=== PATIENT | female | born 1980 | race Caucasian/White ===

== ENCOUNTER 2016-05-09 13:12 | Emergency (ER) | payer MEDICAID ==
[2016-05-09] MEDS ORDERED: ONDANSETRON 4 MG TAB.RAPDIS PO ONE (13:17)
--- NOTE | 2016-05-09 13:18 | ER Document Report ---
ED Medical Screen (RME) - General Stated Complaint: NAUSEA Mode of Arrival: Ambulatory Information source: Patient Notes: Patient presents emergency department with complaints of nasal congestion nausea vomiting diarrhea since Friday night. She complains of body aches. Last vomited this am. I have greeted and performed a rapid initial assessment of this patient. A comprehensive ED assessment and evaluation of the patient, analysis of test results and completion of the medical decision making process will be conducted by additional ED providers. TRAVEL OUTSIDE OF THE [place] IN LAST 30 DAYS: No - Related Data Allergies/Adverse Reactions: iodine [Iodine] Allergy (Verified 05/09/16 13:17) latex [Latex] Allergy (Verified 05/09/16 13:17) meperidine HCl [From Demerol] Allergy (Verified 05/09/16 13:17) morphine [Morphine] Allergy (Verified 05/09/16 13:17) lamotrigine [From Lamictal] Adverse Reaction (Verified 05/09/16 13:17) VOMITING levetiracetam [From Keppra] Adverse Reaction (Verified 05/09/16 13:17) Hallucinations Past Medical History - Social History Family history: Reviewed & Not Pertinent - Past Medical History Cardiac Medical History: Reports: Hx Hypertension - with Pulmonary Medical History: Reports: Hx Asthma - exercise induced Denies: Hx Bronchitis, Hx COPD, Hx Pneumonia Neurological Medical History: Reports: Hx Cerebrovascular Accident - states tia , Hx Migraine, Hx Seizures - epilepsy Endocrine Medical History: GI Medical History: Reports: Hx Irritable Bowel Musculoskeltal Medical History: Reports Hx Musculoskeletal Deformity, Reports Hx Musculoskeletal Trauma Psychiatric Medical History: Reports: Hx Anxiety, Hx Attention Deficit Hyperactivity Disorder, Hx Depression - and anxiety, Hx Obsessive Compulsive Disorder Traumatic Medical History: Reports: Hx Fractures - left foot Past Surgical History: Reports: Hx Appendectomy, Hx Hysterectomy - robotic 01/28, Hx Tonsillectomy - Immunizations Immunizations up to date: Yes Hx Diphtheria, Pertussis, Tetanus Vaccination: Yes
[2016-05-09 13:50] LABS: APPEARANCE,URINE SLIGHTLY-CLOUDY; BILIRUBIN,URINE NEGATIVE (NEGATIVE); GLUCOSE, URINE NEGATIVE (NEGATIVE); KETONES,URINE 20 mg/dL (NEGATIVE); LEUKOCYTE ESTERASE,URINE NEGATIVE (NEGATIVE); NITRITE,URINE NEGATIVE (NEGATIVE); PROTEIN,URINE NEGATIVE (NEGATIVE); UROBILINOGEN,URINE NEGATIVE mg/dL (<2.0)
[2016-05-09 13:53] LABS: ABSOLUTE MONOCYTES (AUTO) 0.3 10^3/uL (0.1-1.4); ABSOLUTE NEUT (AUTO) 4.1 10^3/uL (1.7-8.2); BASOPHILS % (AUTO) 0.2 % (0-2); EOSINOPHILS % (AUTO) 0.8 % (0-6); HEMATOCRIT 43.1 % (36.0-47.0); HEMOGLOBIN 13.4 g/dL (12.0-15.5); HGB HCT DIFFERENCE -2.9; LYMPHOCYTES % (AUTO) 18.8 % (13-45); MEAN CORPUSCULAR HEMOGLOBIN 29.3 pg (27.0-33.4); MEAN CORPUSCULAR HGB CONC 31.1 g/dL (32.0-36.0); MEAN CORPUSCULAR VOLUME 94 fl (80-97); MONOCYTES % (AUTO) 5.2 % (3-13); RED BLOOD COUNT 4.57 10^6/uL (3.72-5.28); RED CELL DISTRIBUTION WIDTH 13.4 % (11.5-14.0); WHITE BLOOD COUNT 5.5 10^3/uL (4.0-10.5)
[2016-05-09 14:20] LABS: ALANINE AMINOTRANSFERASE 25 U/L (9-52); ALBUMIN 4.6 g/dL (3.5-5.0); ALKALINE PHOSPHATASE 71 U/L (38-126); ANION GAP 15 (5-19); ASPARTATE AMINO TRANSFERASE 20 U/L (14-36); BILIRUBIN,TOTAL 0.5 mg/dL (0.2-1.3); BLOOD UREA NITROGEN 10 mg/dL (7-20); CALCIUM 9.3 mg/dL (8.4-10.2); CARBON DIOXIDE 19 mmol/L (22-30); CHLORIDE 110 mmol/L (98-107); CREATININE RESULT 1.06 mg/dL (0.52-1.25); GLUCOSE 93 mg/dL (75-110); POTASSIUM 4.2 mmol/L (3.6-5.0); SODIUM 143.5 mmol/L (137-145); TOTAL PROTEIN 7.4 g/dL (6.3-8.2)
[2016-05-09] MEDS ORDERED: PROMETHAZINE HCL 25 MG TABLET PO ONE (15:14)
[2016-05-09] MEDS ORDERED: HYDROCODONE/ACETAMINOPHEN 5-325 MG TABLET PO ONE (15:16)
--- NOTE | 2016-05-09 15:23 | ER Document Report ---
ED General - General Chief Complaint: Nausea/Vomiting/Diarrhea Stated Complaint: NAUSEA Mode of Arrival: Ambulatory Notes: This is a 36-year-old female who presents complaining of influenza-like illness for 4 days. She states that fever up to 100 associated with vomiting and diarrhea. She's had nasal congestion and runny nose, cough and body aches. She is accompanied by her so who has had similar symptoms but with a higher fever just prior to the onset of the patient's symptoms. She denies shortness of breath. She does state she has upper abdominal pain when coughing. She's had a cholecystectomy and appendectomy. TRAVEL OUTSIDE OF THE [place] IN LAST 30 DAYS: No - Related Data Allergies/Adverse Reactions: iodine [Iodine] Allergy (Verified 05/09/16 13:17) latex [Latex] Allergy (Verified 05/09/16 13:17) meperidine HCl [From Demerol] Allergy (Verified 05/09/16 13:17) morphine [Morphine] Allergy (Verified 05/09/16 13:17) lamotrigine [From Lamictal] Adverse Reaction (Verified 05/09/16 13:17) VOMITING levetiracetam [From Keppra] Adverse Reaction (Verified 05/09/16 13:17) Hallucinations Past Medical History - General Information source: Patient - Social History Smoking Status: Former Smoker - quit 6 months ago Chew tobacco use (# tins/day): No Frequency of alcohol use: None Drug Abuse: None Family History: Arthritis, CVA, DM, Hyperlipidemia, Hypertension, Malignancy Patient has suicidal ideation: No Patient has homicidal ideation: No - Past Medical History Cardiac Medical History: Reports: Hx Hypertension - with Pulmonary Medical History: Reports: Hx Asthma - exercise induced Denies: Hx Bronchitis, Hx COPD, Hx Pneumonia Neurological Medical History: Reports: Hx Cerebrovascular Accident - states tia , Hx Migraine, Hx Seizures - epilepsy Endocrine Medical History: Renal/ Medical History: Denies: Hx Peritoneal Dialysis GI Medical History: Reports: Hx Irritable Bowel Musculoskeltal Medical History: Reports Hx Musculoskeletal Deformity, Reports Hx Musculoskeletal Trauma Psychiatric Medical History: Reports: Hx Anxiety, Hx Attention Deficit Hyperactivity Disorder, Hx Depression - and anxiety, Hx Obsessive Compulsive Disorder Traumatic Medical History: Reports: Hx Fractures - left foot Past Surgical History: Reports: Hx Appendectomy, Hx Hysterectomy - robotic 10/17 /13, Hx Tonsillectomy - Immunizations Immunizations up to date: Yes Hx Diphtheria, Pertussis, Tetanus Vaccination: Yes Hx Pneumococcal Vaccination: 01/12/13 Review of Systems - Review of Systems Constitutional: Chills, Fever, Malaise, Weakness EENT: Nose congestion, Nose discharge. denies: Ear pain, Throat pain, Difficulty swallowing Cardiovascular: denies: Chest pain, Syncope Respiratory: Cough. denies: Short of breath, Wheezing Gastrointestinal: Diarrhea, Nausea, Vomiting Genitourinary: denies: Dysuria, Flank pain Musculoskeletal: denies: Back pain Skin: denies: Rash Neurological/Psychological: denies: Numbness, Tingling Physical Exam - Notes Notes: GENERAL: Alert, well-appearing female sitting on the stretcher, wearing a respiratory mask in no acute distress HEAD: Atraumatic, normocephalic. EYES: Pupils equal round and reactive to light, extraocular movements intact, sclera anicteric, conjunctiva are normal. ENT: TMs normal, nares patent, oropharynx clear without exudates. Moist mucous membranes. + Rhinorrhea clear NECK: Normal range of motion, supple without lymphadenopathy or JVD. LUNGS: Breath sounds clear to auscultation bilaterally and equal. No wheezes rales or rhonchi. HEART: Regular rate and rhythm without murmurs, rubs or gallops. ABDOMEN: Soft, nontender, normoactive bowel sounds. No guarding, no rebound. No masses appreciated. EXTREMITIES: Normal range of motion, no pitting or edema. No clubbing or cyanosis. NEUROLOGICAL: No facial droop, moving all 4 external he spontaneously PSYCH: Normal mood, normal affect. SKIN: Warm, Dry, normal turgor, no rashes or lesions noted. Course - Re-evaluation Re-evalutation: 05/09/16 15:20 Patient 4 days into influenza-like illness. No sign of serious bacterial infection. - Laboratory Result Diagrams: 05/09/16 13:30 05/09/16 13:30 Laboratory results interpreted by me: 05/09/16 05/09/16 05/09/16 13:30 13:30 13:30 MCHC 31.1 L Chloride 110 H Carbon Dioxide 19 L Est GFR (Non-Af Amer) 59 L Urine Ketones 20 H Discharge - Discharge Clinical Impression: Influenza-like illness Condition: Good Disposition: HOME, SELF-CARE Additional Instructions: return if you are short of breath, cannot keep down fluids or are feeling worse. Symptoms should resolve in about a week from onset. Follow up with your doctor if not feeling well. Prescriptions: Hydrocodone/Acetaminophen [[place] 5-325 mg Tablet] 1 tab PO 6XD PRN #12 tablet PRN Reason: Promethazine HCl [Phenergan 25 mg Tablet] 1 - 2 tab PO Q6H PRN #15 tablet PRN Reason:
[2016-05-09 15:29] VITALS: BP 119/66
== END 2016-05-09 15:35 | disposition home or self-care (01) ==
LOC: ER 13:12
DX: J11.1 Influenza due to unidentified influenza virus with other respiratory manifestations (principal); R11.2 Nausea with vomiting, unspecified; R19.7 Diarrhea, unspecified; R50.9 Fever, unspecified; R09.81 Nasal congestion; R09.89 Other specified symptoms and signs involving the circulatory and respiratory systems; Z87.891 Personal history of nicotine dependence
CPT/HCPCS: 99283; 36415; 85025; 80053; 81001; S0119; J3490

== ENCOUNTER 2016-07-03 13:27 | Emergency (ER) | payer MEDICAID ==
--- NOTE | 2016-07-03 13:44 | EKG REPORT ---
SEVERITY:- BORDERLINE ECG - SINUS RHYTHM : Confirmed by: Junior Amanda MD 03-Jul-2016 13:43:50
--- NOTE | 2016-07-03 13:47 | ER Document Report ---
ED Medical Screen (RME) - General Stated Complaint: CHEST PAIN Notes: 36 yo female c/o acute onset of midsternal chest pain around 1pm. radiates to right arm with right hand numbness. + nausea, + shortness of breath. non smoker, no OCP, no recent travel, no recent surgery or trauma. hx/o gestational diabetes, no HTN TRAVEL OUTSIDE OF THE [place] IN LAST 30 DAYS: No - Related Data Allergies/Adverse Reactions: iodine [Iodine] Allergy (Verified 05/09/16 13:17) latex [Latex] Allergy (Verified 05/09/16 13:17) meperidine HCl [From Demerol] Allergy (Verified 05/09/16 13:17) morphine [Morphine] Allergy (Verified 05/09/16 13:17) lamotrigine [From Lamictal] Adverse Reaction (Verified 05/09/16 13:17) VOMITING levetiracetam [From Keppra] Adverse Reaction (Verified 05/09/16 13:17) Hallucinations Past Medical History - Social History Family history: Reviewed & Not Pertinent - Past Medical History Cardiac Medical History: Reports: Hx Hypertension - with Pulmonary Medical History: Reports: Hx Asthma - exercise induced Denies: Hx Bronchitis, Hx COPD, Hx Pneumonia Neurological Medical History: Reports: Hx Cerebrovascular Accident - states tia , Hx Migraine, Hx Seizures - epilepsy Endocrine Medical History: Renal/ Medical History: Denies: Hx Peritoneal Dialysis GI Medical History: Reports: Hx Irritable Bowel Musculoskeltal Medical History: Reports Hx Musculoskeletal Deformity, Reports Hx Musculoskeletal Trauma Psychiatric Medical History: Reports: Hx Anxiety, Hx Attention Deficit Hyperactivity Disorder, Hx Depression - and anxiety, Hx Obsessive Compulsive Disorder Traumatic Medical History: Reports: Hx Fractures - left foot Past Surgical History: Reports: Hx Appendectomy, Hx Hysterectomy - robotic 01/28, Hx Tonsillectomy - Immunizations Immunizations up to date: Yes Hx Diphtheria, Pertussis, Tetanus Vaccination: Yes
[2016-07-03 14:12] LABS: ABSOLUTE EOSINOPHILS # (AUTO) 0.2 10^3/uL (0.0-0.6); ABSOLUTE LYMPHOCYTES (AUTO) 1.2 10^3/uL (0.5-4.7); ABSOLUTE MONOCYTES (AUTO) 0.2 10^3/uL (0.1-1.4); ABSOLUTE NEUT (AUTO) 3.3 10^3/uL (1.7-8.2); BASOPHILS % (AUTO) 0.4 % (0-2); EOSINOPHILS % (AUTO) 3.6 % (0-6); HEMATOCRIT 38.8 % (36.0-47.0); HEMOGLOBIN 13.3 g/dL (12.0-15.5); HGB HCT DIFFERENCE 1.1; LYMPHOCYTES % (AUTO) 23.9 % (13-45); MEAN CORPUSCULAR HEMOGLOBIN 30.9 pg (27.0-33.4); MEAN CORPUSCULAR HGB CONC 34.1 g/dL (32.0-36.0); MEAN CORPUSCULAR VOLUME 90 fl (80-97); MONOCYTES % (AUTO) 4.9 % (3-13); RED CELL DISTRIBUTION WIDTH 13.2 % (11.5-14.0); SEGMENTED NEUTROPHILS % (AUTO) 67.2 % (42-78); WHITE BLOOD COUNT 4.9 10^3/uL (4.0-10.5)
[2016-07-03 14:26] LABS: APPEARANCE,URINE SLIGHTLY-CLOUDY; BILIRUBIN,URINE NEGATIVE (NEGATIVE); GLUCOSE, URINE NEGATIVE (NEGATIVE); KETONES,URINE NEGATIVE (NEGATIVE); LEUKOCYTE ESTERASE,URINE NEGATIVE (NEGATIVE); NITRITE,URINE NEGATIVE (NEGATIVE); PROTEIN,URINE NEGATIVE (NEGATIVE); URINE SPECIFIC GRAVITY 1.024; UROBILINOGEN,URINE NEGATIVE mg/dL (<2.0)
[2016-07-03 14:30] LABS: ALANINE AMINOTRANSFERASE 14 U/L (9-52); ALBUMIN 4.3 g/dL (3.5-5.0); ALKALINE PHOSPHATASE 67 U/L (38-126); ANION GAP 12 (5-19); ASPARTATE AMINO TRANSFERASE 15 U/L (14-36); BILIRUBIN,DIRECT 0.1 mg/dL (0.0-0.4); BILIRUBIN,TOTAL 0.3 mg/dL (0.2-1.3); BLOOD UREA NITROGEN 11 mg/dL (7-20); CALCIUM 9.4 mg/dL (8.4-10.2); CARBON DIOXIDE 20 mmol/L (22-30); CHLORIDE 112 mmol/L (98-107); CREATINE KINASE 41 U/L (30-135); CREATININE RESULT 0.94 mg/dL (0.52-1.25); GLUCOSE 97 mg/dL (75-110); LIPASE 99.2 U/L (23-300); POTASSIUM 4.1 mmol/L (3.6-5.0); TOTAL PROTEIN 7.2 g/dL (6.3-8.2)
[2016-07-03 14:41] LABS: CREATINE KINASE MB 0.33 ng/mL (<4.55)
[2016-07-03 14:42] LABS: TROPONIN I < 0.012 ng/mL
[2016-07-03] MEDS ORDERED: OXYCODONE-ACETAMINOPHEN 5-325 MG TABLET PO ONE (18:04)
[2016-07-03] MEDS ORDERED: IBUPROFEN 800 MG TABLET PO ONE (18:04)
--- NOTE | 2016-07-03 18:06 | ER Document Report ---
ED Cardiac - General Mode of Arrival: Medic Information source: Patient TRAVEL OUTSIDE OF THE [place] IN LAST 30 DAYS: No - HPI Patient complains to provider of: Chest pain Associated symptoms: Other - See above <ANNE MONTENEGRO - Last Filed: 07/03/16 18:00> <ALONZO JACOBSEN - Last Filed: 07/03/16 18:21> - General Chief Complaint: Chest Pain > 30 Stated Complaint: CHEST PAIN Notes: Patient is a 36 year old female who presents to the emergency department complaining of chest pain onset this afternoon. Patient describes the pain as in her center chest with intermittent "electric shots" that radiate to her right shoulder and down her right arm. Patient states the pain is not exacerbated by breathing or moving her arms. Patient also denies recent physical activity within the past few weeks. PCP: [facility] [place] (ANNE MONTENEGRO) - Related Data Allergies/Adverse Reactions: iodine [Iodine] Allergy (Verified 05/09/16 13:17) latex [Latex] Allergy (Verified 05/09/16 13:17) meperidine HCl [From Demerol] Allergy (Verified 05/09/16 13:17) morphine [Morphine] Allergy (Verified 05/09/16 13:17) lamotrigine [From Lamictal] Adverse Reaction (Verified 05/09/16 13:17) VOMITING levetiracetam [From Keppra] Adverse Reaction (Verified 05/09/16 13:17) Hallucinations Past Medical History - General Information source: Patient - Social History Smoking Status: Former Smoker - 2 years Chew tobacco use (# tins/day): No Frequency of alcohol use: None Drug Abuse: None Family History: Reviewed & Not Pertinent, Arthritis, CVA, DM, Hyperlipidemia, Hypertension, Malignancy Patient has suicidal ideation: No Patient has homicidal ideation: No - Past Medical History Cardiac Medical History: Reports: Hx Hypertension - with Pulmonary Medical History: Reports: Hx Asthma - exercise induced Neurological Medical History: Reports: Hx Cerebrovascular Accident - states tia , Hx Migraine, Hx Seizures - epilepsy Endocrine Medical History: GI Medical History: Reports: Hx Irritable Bowel Musculoskeltal Medical History: Reports Hx Musculoskeletal Deformity, Reports Hx Musculoskeletal Trauma Psychiatric Medical History: Reports: Hx Anxiety, Hx Attention Deficit Hyperactivity Disorder, Hx Depression - and anxiety, Hx Obsessive Compulsive Disorder Traumatic Medical History: Reports: Hx Fractures - left foot Past Surgical History: Reports: Hx Appendectomy, Hx Hysterectomy, Hx Tonsillectomy - Immunizations Immunizations up to date: Yes Hx Diphtheria, Pertussis, Tetanus Vaccination: Yes Hx Pneumococcal Vaccination: 01/12/13 <ANNE MONTENEGRO - Last Filed: 07/03/16 18:00> Review of Systems - Review of Systems Constitutional: No symptoms reported EENT: No symptoms reported Cardiovascular: See HPI, Chest pain Respiratory: No symptoms reported Gastrointestinal: No symptoms reported Genitourinary: No symptoms reported Female Genitourinary: No symptoms reported Musculoskeletal: No symptoms reported Skin: No symptoms reported Hematologic/Lymphatic: No symptoms reported Neurological/Psychological: No symptoms reported -: Yes All other systems reviewed and negative <ANNE MONTENEGRO - Last Filed: 07/03/16 18:00> Physical Exam - Vital signs Interpretation: Normal - General General appearance: Appears well, Alert - HEENT Head: Normocephalic, Atraumatic - Respiratory Respiratory status: No respiratory distress Chest status: Tender - lower sternum tender to palpatio Breath sounds: Normal Chest palpation: Normal - Cardiovascular Rhythm: Regular Heart sounds: Normal auscultation Murmur: No - Abdominal Inspection: Obese Distension: No distension Bowel sounds: Normal Tenderness: Nontender Organomegaly: No organomegaly - Back Back: Normal, Nontender - Extremities General upper extremity: Normal inspection General lower extremity: Normal inspection - Neurological Neuro grossly intact: Yes Cognition: Normal Orientation: AAOx4 [place] Coma Scale Eye Opening: Spontaneous [place] Coma Scale Verbal: Oriented [place] Coma Scale Motor: Obeys Commands Lu[place] Coma Scale Total: 15 Speech: Normal - Psychological Associated symptoms: Normal affect, Normal mood - Skin Skin Temperature: Warm Skin Moisture: Dry Skin Color: Normal <ANNE MONTENEGRO - Last Filed: 07/03/16 18:00> Course - Laboratory Result Diagrams: 07/03/16 13:50 07/03/16 13:50 <ANNE MONTENEGRO - Last Filed: 07/03/16 18:00> - Laboratory Result Diagrams: 07/03/16 13:50 07/03/16 13:50 - Diagnostic Test Radiology reviewed: Image reviewed, Reports reviewed - Normal chest x-ray - EKG Interpretation by Me EKG shows normal: Sinus rhythm, [place], Intervals, QRS Complexes, ST-T Waves Rate: Normal - 90 Rhythm: NSR <ALONZO JACOBSEN - Last Filed: 07/03/16 18:21> - Vital Signs Vital signs: Temp Pulse Resp BP Pulse Ox 99.0 F 89 18 132/82 H 100 07/03/16 17:01 07/03/16 17:01 07/03/16 17:01 07/03/16 17:01 07/03/16 17:01 - Laboratory Laboratory results interpreted by me: 07/03/16 13:50 Chloride 112 H Carbon Dioxide 20 L Discharge <ANNE MONTENEGRO - Last Filed: 07/03/16 18:00> <ALONZO JACOBSEN - Last Filed: 07/03/16 18:21> - Discharge Clinical Impression: Chest wall pain Condition: Stable Disposition: HOME, SELF-CARE Additional Instructions: Chest Wall Pain: Your chest pain has been diagnosed as coming from the chest wall. This is often caused by straining the muscles or joints in the chest during physical activity, direct trauma, coughing, or vigorous vomiting. Persons with arthritis are especially prone to this type of pain, due to inflammation of the cartilage joints near the breast bone. Occasionally, no cause can be found. Rest from strenuous physical activity. This kind of chest pain is usually made worse by movement of the chest. Depending on the symptoms, we may prescribe medicine for pain, muscle relaxation, and antiinflammatory effects. If the pain is new, and seems to be due to muscle strain, cold packs can help. Otherwise, apply gentle warmth to the painful area for 15 minutes every hour or two. You should contact the doctor immediately if things change. Further evaluation is needed if you develop a fever or cough, if the nature of the pain changes, or if you become short of breath. TAKE THE MEDICATION PRESCRIBED IF NEEDED. TAKE MOTRIN OR ALEVE REGULARLY FOR A FEW DAYS. FOLLOW UP WITH YOUR DOCTOR IF NOT IMPROVING. RETURN TO THE EMERGENCY ROOM IF ANY NEW OR WORSENING SYMPTOMS. Prescriptions: Hydrocodone/Acetaminophen [[place] 5-325 mg Tablet] 1 tab PO Q4 PRN #12 tablet PRN Reason: Scribe Documentation - Scribe Written by Sana:: sana Jean, 07/03/16, 3092 acting as scribe for :: Ankur <ANNE MONTENEGRO - Last Filed: 07/03/16 18:00>
[2016-07-03 18:48] VITALS: BP 117/75
== END 2016-07-03 18:48 | disposition home or self-care (01) ==
LOC: ER 13:27
DX: R07.9 Chest pain, unspecified (principal); E66.9 Obesity, unspecified; Z88.6 Allergy status to analgesic agent; Z91.040 Latex allergy status; Z87.891 Personal history of nicotine dependence; Z86.73 Personal history of transient ischemic attack (TIA), and cerebral infarction without residual deficits; Z90.710 Acquired absence of both cervix and uterus
CPT/HCPCS: 36415; 71020; 80053; 81001; 81025; 82550; 82553; 83690; 84484; 85025; 93005; 93010; 99285

== ENCOUNTER 2016-11-06 20:33 | Emergency (ER) | payer MEDICAID ==
[2016-11-06] MEDS ORDERED: ONDANSETRON 4 MG TAB.RAPDIS PO ONE (21:53)
[2016-11-06] MEDS ORDERED: DICYCLOMINE HCL INJ 20 MG/2 ML AMPULE IM ONE (23:05)
[2016-11-06 23:08] LABS: APPEARANCE,URINE CLOUDY; BILIRUBIN,URINE SMALL (NEGATIVE); GLUCOSE, URINE NEGATIVE (NEGATIVE); KETONES,URINE 20 mg/dL (NEGATIVE); LEUKOCYTE ESTERASE,URINE TRACE (NEGATIVE); NITRITE,URINE NEGATIVE (NEGATIVE); PROTEIN,URINE 100 mg/dL (NEGATIVE); URINE SPECIFIC GRAVITY 1.034; UROBILINOGEN,URINE NEGATIVE mg/dL (<2.0)
--- NOTE | 2016-11-06 23:08 | ER Document Report ---
ED General - General Chief Complaint: Diarrhea Stated Complaint: DIARRHEA Time Seen by Provider: 11/06/16 21:53 Mode of Arrival: Ambulatory Information source: Patient, Relative TRAVEL OUTSIDE OF THE [place] IN LAST 30 DAYS: No - HPI Onset: Other - three days nonbloody diarrhea and abdominal cramping Associated symptoms: None Similar symptoms previously: No - Related Data Allergies/Adverse Reactions: iodine [Iodine] Allergy (Verified 11/06/16 20:44) latex [Latex] Allergy (Verified 11/06/16 20:44) meperidine HCl [From Demerol] Allergy (Verified 11/06/16 20:44) morphine [Morphine] Allergy (Verified 11/06/16 20:44) lamotrigine [From Lamictal] Adverse Reaction (Verified 11/06/16 20:44) VOMITING levetiracetam [From Keppra] Adverse Reaction (Verified 11/06/16 20:44) Hallucinations Home Medications: Current Home Medications Oxcarbazepine [Oxtellar Xr] 1 tab PO DAILY 11/06/16 [History] Oxcarbazepine [Oxtellar Xr] 1 tab PO DAILY 11/06/16 [History] Past Medical History - Social History Smoking Status: Never Smoker Family History: Reviewed & Not Pertinent, Arthritis, CVA, DM, Hyperlipidemia, Hypertension, Malignancy - Past Medical History Cardiac Medical History: Reports: Hx Hypertension - with Pulmonary Medical History: Reports: Hx Asthma - exercise induced Denies: Hx Bronchitis, Hx COPD, Hx Pneumonia Neurological Medical History: Reports: Hx Cerebrovascular Accident - states tia , Hx Migraine, Hx Seizures - epilepsy Endocrine Medical History: Renal/ Medical History: Denies: Hx Peritoneal Dialysis GI Medical History: Reports: Hx Irritable Bowel Musculoskeltal Medical History: Reports Hx Musculoskeletal Deformity, Reports Hx Musculoskeletal Trauma Psychiatric Medical History: Reports: Hx Anxiety, Hx Attention Deficit Hyperactivity Disorder, Hx Depression - and anxiety, Hx Obsessive Compulsive Disorder Traumatic Medical History: Reports: Hx Fractures - left foot Past Surgical History: Reports: Hx Appendectomy, Hx Hysterectomy, Hx Tonsillectomy - Immunizations Immunizations up to date: Yes Hx Diphtheria, Pertussis, Tetanus Vaccination: Yes Hx Pneumococcal Vaccination: 01/12/13 Review of Systems - Review of Systems Constitutional: Fever - 100.4 at home yesterday. denies: Chills, Weight gain, Weight loss, Recent illness EENT: No symptoms reported Cardiovascular: No symptoms reported Respiratory: No symptoms reported Gastrointestinal: Diarrhea, Constipation. denies: Abdomen distended, Abdominal pain, Nausea, Vomiting, Blood streaked bowels, Poor appetite, Poor fluid intake , Blood in vomit, Black stools, Rectal bleeding Genitourinary: No symptoms reported Female Genitourinary: No symptoms reported Musculoskeletal: No symptoms reported Skin: No symptoms reported Hematologic/Lymphatic: No symptoms reported Neurological/Psychological: No symptoms reported Physical Exam - Vital signs Vitals: Temp Pulse Resp BP Pulse Ox 99.4 F 106 H 19 135/93 H 99 11/06/16 20:45 11/06/16 20:45 11/06/16 20:45 11/06/16 20:45 11/06/16 20:45 - General General appearance: Appears well, Alert - Respiratory Respiratory status: No respiratory distress Chest status: Nontender Breath sounds: Normal Chest palpation: Normal - Cardiovascular Rhythm: Regular Heart sounds: Normal auscultation Murmur: No - Abdominal Inspection: Normal Distension: No distension Bowel sounds: Normal Tenderness: Nontender Organomegaly: No organomegaly - Back Back: Normal, Nontender - Neurological Neuro grossly intact: Yes Cognition: Normal Orientation: AAOx4 [place] Coma Scale Eye Opening: Spontaneous Luisa Coma Scale Verbal: Oriented [place] Coma Scale Motor: Obeys Commands [place] Coma Scale Total: 15 Speech: Normal Motor strength normal: LUE, RUE, LLE, RLE Sensory: Normal Course - Re-evaluation Re-evalutation: 11/06/16 23:07 Presents emerged from a 3 day history of nonbloody diarrhea not associated with vomiting. Some generalized cramping abdominal pain prior to and after the events. Has not taken anything for home. Said she had 100.4 temperature yesterday she took some ibuprofen. She denies history of Crohn's disease or ulcerative colitis. She has not been exposed to anyone else who is ill. She has no concerns for food poisoning multiple family members without any sickness. No contact out of the country for other contact with C. difficile. On examination well-appearing nontoxic no acute distress tolerating oral fluids abdomen is soft good bowel sounds no tenderness guarding rebound rigidity. urinalysis and attempt to obtain a stool culture and given Bentyl. 11/06/16 23:49 Well-appearing nontoxic no active vomiting he has not had any diarrhea since she has been here serial abdominal examinations no acute tenderness guarding rebound or rigidity. Urinalysis is positive for bacteria and white cells on sending a culture on that. Can discharge her to home on Bentyl oral hydration follow-up with PCP in 2-3 days and discussed reasons for ED return sooner - Vital Signs Vital signs: Temp Pulse Resp BP Pulse Ox 99.4 F 106 H 19 135/93 H 99 11/06/16 20:45 11/06/16 20:45 11/06/16 20:45 11/06/16 20:45 11/06/16 20:45 - Laboratory Laboratory results interpreted by me: 11/06/16 22:51 Urine Protein 100 H Urine Ketones 20 H Urine Bilirubin SMALL H Ur Leukocyte Esterase TRACE H Discharge - Discharge Clinical Impression: Diarrhea Qualifiers: Diarrhea type: unspecified type Qualified Code(s): R19.7 - Diarrhea, unspecified UTI (urinary tract infection) Qualifiers: Urinary tract infection type: site unspecified Hematuria presence: without hematuria Qualified Code(s): N39.0 - Urinary tract infection, site not specified Condition: Stable Disposition: HOME, SELF-CARE Instructions: Nitrofurantoin ([facility]) Additional Instructions: Diarrhea Diarrhea means frequent, watery stools. There are many causes. Any problem that keeps the intestinal tract from absorbing water from the stool can lead to diarrhea. A sudden new diarrhea problem is usually caused by a virus, food sensitivity, toxic bacteria, or drugs. In this case, we expect the problem to go away soon. Testing is done only if you seem seriously ill from the diarrhea. If you have chronic diarrhea, or diarrhea that keeps coming back, we need to find out why. Chronic diarrhea can be due to inflammation of the bowels such as Crohn's disease or ulcerative colitis, food sensitivity such as intolerance to lactose or wheat protein, irritable bowel syndrome, and other problems. If your diarrhea is a significant problem but it's not clear why you have it, we' ll refer you to a specialist for further testing. During an episode of diarrhea, drink small amounts (two to six ounces) of clear liquids (soft drinks, sport drinks, herb teas, broth, etc). Take fluids frequently to prevent dehydration. It's usually not a problem to take mild anti- diarrhea medication such as Kaopectate or Pepto-Bismol. As the diarrhea eases, advance to small amounts of bland food (mashed potato, toast) for 24 hours. Call the physician if blood appears in your vomit or stool, if vomiting lasts longer than 24 hours, if the abdominal pain worsens or becomes localized to one area, if you develop high fever, or if you become lightheaded and weak. Urinary Tract Infection Your evaluation indicates that you have a urinary tract infection. This is due to germs growing in the bladder. This is a common problem. This infection usually responds quickly to antibiotics. Your antibiotic should be taken exactly as prescribed. Drink plenty of fluids -- three to four quarts a day. Occasionally, a bladder anesthetic will be prescribed to help stop the feeling of urgency until the antibiotic has a chance to clear the infection. This may cause your urine to be dark orange. Certain urine infections require a culture. If the doctor obtained a culture, the results will be back in two days. You should call to see if a change in treatment is needed. A repeat urinalysis after you finish treatment is often recommended. The physician will let you know if further testing is required. Call the doctor if you develop fever, chills, flank pain, inability to urinate, or blood in the urine. Prescriptions: Dicyclomine HCl [Bentyl 20 mg Tablet] 20 mg PO QID #15 tablet Nitrofurantoin/Nitrofuran Mac [Macrobid 100 mg Capsule] 1 tab PO BID #20 capsule Referrals: MARCIA WALTER MD [Primary Care Provider] - (in 2-3 days return to er sooner for increasing worsening or new symptoms)
[2016-11-07 00:01] VITALS: BP 129/70
== END 2016-11-07 | disposition home or self-care (01) ==
LOC: ER 20:33
DX: R19.7 Diarrhea, unspecified (principal); N39.0 Urinary tract infection, site not specified; K59.00 Constipation, unspecified; R10.84 Generalized abdominal pain; J45.909 Unspecified asthma, uncomplicated; Z91.040 Latex allergy status; Z88.5 Allergy status to narcotic agent; Z90.49 Acquired absence of other specified parts of digestive tract; Z90.710 Acquired absence of both cervix and uterus
CPT/HCPCS: 99284; 87086; 81025; 87088; 81001; 87186; S0119

== ENCOUNTER 2017-02-24 08:14 | Day surgery (SDC) | payer MEDICAID ==
[~2017-02-24 08:14] MED LIST: PROPOFOL INJ 200 MG/20 ML VIAL IV ONE
[2017-02-24] MEDS ORDERED: PROPOFOL INJ 200 MG/20 ML VIAL IV ONE (10:38)
[2017-02-24 11:00] VITALS: BP 114/76
--- NOTE | 2017-02-24 13:19 | Operative Report ---
Operative Report DATE OF SURGERY: 02/24/17 Operative Report: The risks, benefits and alternatives of the procedure including risks of bleeding, perforation requiring surgery are explained to the patient in detail and informed consent is obtained. Patient is taken back to the endoscopy suite and placed in the left, lateral decubital position. Timeout was called. Propofol medications administered. A rectal examination is done which did not reveal any masses, tears or fissures. An Olympus videoscope was inserted into the patient's rectum. The scope was then carefully advanced all the way to the cecum. The cecum was identified by the usual anatomical landmarks including the ileocecal valve as well as the appendiceal office. Photodocumentation is obtained. The scope was then sequentially pulled back via the various segments of the colon including the ascending colon, hepatic flexure, transverse colon, splenic flexure, descending colon finding to the rectosigmoid portions of the colon. Active flexion maneuvers performed. PREOPERATIVE DIAGNOSIS: Change in bowel habits POSTOPERATIVE DIAGNOSIS: Mild right-sided colon inflammation status post biopsy rule out lymphocytic, microscopic, collagenous colitis. OPERATION: Colonoscopy with biopsy SURGEON: BHAVESH LOYA ANESTHESIA: LMAC TISSUE REMOVED OR ALTERED: As noted above. COMPLICATIONS: None. ESTIMATED BLOOD LOSS: None. INTRAOPERATIVE FINDINGS: As described above. PROCEDURE: Patient tolerated procedure well. No immediate postprocedure complications are noted. Patient discharged in good condition. Discharge date 02/24/2017. Discharge diet: Regular. Discharge activity: Regular. 2-3 week follow-up to discuss findings. Patient is instructed call the office or proceed to the emergency room should there be any further problems or questions. We will wait on pathology.
== END 2017-02-24 10:48 | disposition home or self-care (01) ==
LOC: END 08:14
PROVIDERS: ATTEND Internal Medicine Gastroenterology
PROC: 0DBF8ZX Excision of Right Large Intestine, Via Natural or Artificial Opening Endoscopic, Diagnostic (ICD-10-PCS; principal; 2017-02-24 10:30)
DX: K52.9 Noninfective gastroenteritis and colitis, unspecified (principal); J45.909 Unspecified asthma, uncomplicated; F17.210 Nicotine dependence, cigarettes, uncomplicated; G40.909 Epilepsy, unspecified, not intractable, without status epilepticus; Z79.899 Other long term (current) drug therapy; Z88.5 Allergy status to narcotic agent; Z91.040 Latex allergy status; I69.951 Hemiplegia and hemiparesis following unspecified cerebrovascular disease affecting right dominant side
CPT/HCPCS: 45380; 88305 ×2; J2704; 810

== ENCOUNTER 2017-10-12 14:12 | Emergency (ER) | payer MEDICAID ==
[2017-10-12 14:34] VITALS: BP 132/81
[2017-10-12] MEDS ORDERED: LIDOCAINE 2% VISCOUS SOLN 20 ML UDCUP PO ONE (15:10)
--- NOTE | 2017-10-12 15:14 | ER Document Report ---
HPI - HPI Pain Level: 3 Notes: Patient is a 37-year-old female with history of epilepsy who presents to the ED complaining of left lower dental pain #172-3 days. Patient states that her pain is to her left lower jaw and will radiate up towards her ear at times. She has not noticed any obvious abscess or purulent discharge. Patient states that she is still able to eat and drink, but does have a decreased p.o. intake due to the pain. She has tried some [id number] meds with minimal relief. No other concerns or complaints. Denies any headache, fever, head injury, neck pain, hoarseness, drooling, URI, sore throat, chest pain, palpitations, syncope, cough, shortness of breath, wheeze, dyspnea, abdominal pain, nausea/ vomiting/diarrhea, urinary retention, dysuria, hematuria, or rash. - ROS Systems Reviewed and Negative: Yes All other systems reviewed and negative - REPRODUCTIVE Reproductive: DENIES: : Past Medical History - Social History Smoking Status: Former Smoker Family History: Reviewed & Not Pertinent, Arthritis, CVA, DM, Hyperlipidemia, Hypertension, Malignancy - Past Medical History Cardiac Medical History: Reports: Hx Hypertension - with Denies: Hx Coronary Artery Disease, Hx Heart Attack Pulmonary Medical History: Reports: Hx Asthma - exercise induced Denies: Hx Bronchitis, Hx COPD, Hx Pneumonia Neurological Medical History: Reports: Hx Migraine, Hx Seizures - epilepsy, right sided numbness with seizures. Denies: Hx Cerebrovascular Accident Endocrine Medical History: Renal/ Medical History: Denies: Hx Peritoneal Dialysis GI Medical History: Reports: Hx Irritable Bowel Musculoskeltal Medical History: Denies Hx Arthritis, Reports Hx Musculoskeletal Deformity, Reports Hx Musculoskeletal Trauma Psychiatric Medical History: Reports: Hx Anxiety, Hx Attention Deficit Hyperactivity Disorder, Hx Depression - and anxiety, Hx Obsessive Compulsive Disorder Traumatic Medical History: Reports: Hx Fractures - left foot Past Surgical History: Reports: Hx Appendectomy, Hx Hysterectomy, Hx Tonsillectomy - Immunizations Immunizations up to date: Yes Hx Diphtheria, Pertussis, Tetanus Vaccination: Yes Hx Pneumococcal Vaccination: 01/12/13 Vertical Provider Document - CONSTITUTIONAL Agree With Documented VS: Yes Notes: PHYSICAL EXAMINATION: GENERAL: Well-appearing, well-nourished and in no acute distress. HEAD: Atraumatic, normocephalic. EYES: Pupils equal round and reactive to light, extraocular movements intact, sclera anicteric, conjunctiva are normal. ENT: EAC clear b/l. TM's intact b/l without erythema, fluid, or perforation. Nares patent and without discharge. oropharynx clear without exudates. No tonsilar hypertrophy or erythema. Moist mucous membranes. No sinus tenderness. Uvula midline. No palatine shift. No tongue protrusion. No respiratory compromise. Mouth: Poor dentition. + severe decay and mild gingivitis. No obvious abscess or discharge noted. No facial swelling. + tenderness to tooth #17. NECK: Normal range of motion, supple without lymphadenopathy. No rigidity/ meningismus. LUNGS: Breath sounds clear to auscultation bilaterally and equal. No wheezes rales or rhonchi. HEART: Regular rate and rhythm without murmurs, rubs, gallops. NEUROLOGICAL: Cranial nerves grossly intact. Normal speech, normal gait. PSYCH: Normal mood, normal affect. SKIN: Warm, Dry, normal turgor, no rashes or lesions noted. - INFECTION CONTROL TRAVEL OUTSIDE OF THE [place] IN LAST 30 DAYS: No Course - Re-evaluation Re-evalutation: 10/12/17 15:12 Patient is an afebrile, well-hydrated, 37-year-old female who presents to the ED with dental pain, suspect nerve root etiology versus infection. Vitals are acceptable. PE is otherwise unremarkable. No I&D, labs, or imaging warranted at this time based on H&P. Viscous lidocaine dispensed today. I will send her home with a prescription for penicillin. Low suspicion for any meningitis, sepsis, peritonsillar/pharyngeal abscess, respiratory compromise, Grayson's, temporal arteritis, or other emergent systemic condition at this time. Patient is aware this condition can change from initial presentation and she needs to monitor symptoms closely. Conservative measures otherwise for symptoms. Call to schedule an appointment with a dentist for further evaluation and management. Recheck with your PCM this week as well. Return to the ED with any worsening/concerning symptoms otherwise as reviewed in discharge. Patient is in agreement. - Vital Signs Vital signs: Temp Pulse Resp BP Pulse Ox 98.9 F 82 16 132/81 H 100 10/12/17 14:32 10/12/17 14:32 10/12/17 14:32 10/12/17 14:32 10/12/17 14:32 Discharge - Discharge Clinical Impression: Pain, dental Condition: Stable Disposition: HOME, SELF-CARE Instructions: Penicillin V K (OM), Toothache ([facility]) Additional Instructions: Corrigan and floss twice daily Maintain fluid intake Take antibiotics as directed Mouthwash, salt water gargles, peroxide rinse as needed Tylenol/ibuprofen as needed Recheck with PCM this week Call tomorrow and schedule an appointment with your dentist for further evaluation Return to the ED with any worsening symptoms and/or development of fever, headache, facial swelling, swelling of lips/tongue/throat, trouble swallowing, drooling, hoarseness, neck pain/stiffness, chest pain, palpitations, syncope, shortness of breath, trouble breathing, abdominal pain, n/v/d, numbness/tingling , or other worsening symptoms that are concerning to you. Prescriptions: Penicillin V Potassium [Penicillin Vk 250 mg Tablet] 500 mg PO BID #40 tablet Forms: Elevated Blood Pressure Referrals: TAHIR FREDERICK PA-C [Primary Care Provider] - Follow up as needed [facility] [Provider Group] - Follow up in 3-5 days SHAYY METCALF MD [ACTIVE STAFF] - Follow up as needed
== END 2017-10-12 15:25 | disposition home or self-care (01) ==
LOC: ER 14:12
DX: K08.89 Other specified disorders of teeth and supporting structures (principal); R68.84 Jaw pain; R63.0 Anorexia; Z87.891 Personal history of nicotine dependence; J45.909 Unspecified asthma, uncomplicated
CPT/HCPCS: 99282; J3490

== ENCOUNTER 2018-04-18 22:56 | Emergency (ER) | payer MEDICAID ==
[2018-04-19] MEDS ORDERED: ONDANSETRON HCL INJ/PF 4 MG/2 ML SDV IV ONE (00:29)
[2018-04-19] MEDS ORDERED: RINGERS SOLUTION,LACTATED 1,000 ML IV ONE (00:30)
[2018-04-19 01:19] LABS: HEMATOCRIT 39.4 % (36.0-47.0); HEMOGLOBIN 13.2 g/dL (12.0-15.5); MEAN CORPUSCULAR HEMOGLOBIN 31.1 pg (27.0-33.4); MEAN CORPUSCULAR HGB CONC 33.6 g/dL (32.0-36.0); MEAN CORPUSCULAR VOLUME 93 fl (80-97); PLATELET COUNT 197 10^3/uL (150-450); RED BLOOD COUNT 4.25 10^6/uL (3.72-5.28); RED CELL DISTRIBUTION WIDTH 13.1 % (11.5-14.0); WHITE BLOOD COUNT 4.2 10^3/uL (4.0-10.5)
--- NOTE | 2018-04-19 01:21 | RADIOLOGY REPORT (SQ) ---
XR CHEST 2 VIEWS HISTORY: Cough. Fever. COMPARISON: 07/03/2016 FINDINGS: The cardiomediastinal silhouette is unremarkable. The lungs are clear. No pleural effusion or pneumothorax is identified. IMPRESSION: No acute cardiopulmonary abnormality.
[2018-04-19 01:28] LABS: APPEARANCE,URINE CLOUDY; BILIRUBIN,URINE NEGATIVE (NEGATIVE); COLOR,URINE YELLOW; GLUCOSE, URINE NEGATIVE (NEGATIVE); KETONES,URINE NEGATIVE (NEGATIVE); LEUKOCYTE ESTERASE,URINE NEGATIVE (NEGATIVE); NITRITE,URINE NEGATIVE (NEGATIVE); PROTEIN,URINE NEGATIVE (NEGATIVE); URINE SPECIFIC GRAVITY 1.025; UROBILINOGEN,URINE NEGATIVE mg/dL (<2.0)
[2018-04-19 01:29] LABS: A TYPE INFLUENZA AG NEGATIVE (NEGATIVE); B INFLUENZA AG NEGATIVE (NEGATIVE)
--- NOTE | 2018-04-19 02:20 | ER Document Report ---
ED General - General Chief Complaint: Flu Symptoms Stated Complaint: COUGHING,ABDOMINAL PAIN,POSSIBLE FEVER Time Seen by Provider: 04/19/18 00:29 Notes: Patient is a 38-year-old female without chronic medical problems who presents with 1 week of cough, body aches, nasal congestion, sore throat and now with 48 hours of nausea and vomiting after being empirically started on Tamiflu at an urgent care without flu testing. The patient states that this has made her symptoms much worse as she is now having difficulty tolerating oral intake. She has tried Zofran without any relief. multiple sick contacts at home with similar symptoms. She denies shortness of breath, headache, neck pain or altered mental status. No focal abdominal pain. Nothing worsens her symptoms. She has tried Tylenol with some improvement. TRAVEL OUTSIDE OF THE [place] IN LAST 30 DAYS: No - Related Data Allergies/Adverse Reactions: iodine [Iodine] Allergy (Verified 04/19/18 02:31) latex [Latex] Allergy (Verified 04/19/18 02:31) meperidine HCl [From Demerol] Allergy (Verified 04/19/18 02:31) morphine [Morphine] Allergy (Verified 04/19/18 02:31) lamotrigine [From Lamictal] Adverse Reaction (Verified 04/19/18 02:31) VOMITING levetiracetam [From Keppra] Adverse Reaction (Verified 04/19/18 02:31) Hallucinations Past Medical History - General Information source: Patient - Social History Smoking Status: Current Every Day Smoker Frequency of alcohol use: None Drug Abuse: None Lives with: Spouse/Significant other Family History: Reviewed & Not Pertinent, Arthritis, CVA, DM, Hyperlipidemia, Hypertension, Malignancy Patient has suicidal ideation: No Patient has homicidal ideation: No - Past Medical History Cardiac Medical History: Reports: Hx Hypertension - with Denies: Hx Coronary Artery Disease, Hx Heart Attack Pulmonary Medical History: Reports: Hx Asthma - exercise induced Denies: Hx Bronchitis, Hx COPD, Hx Pneumonia Neurological Medical History: Reports: Hx Migraine, Hx Seizures - epilepsy, right sided numbness with seizures. Denies: Hx Cerebrovascular Accident Endocrine Medical History: Renal/ Medical History: Denies: Hx Peritoneal Dialysis GI Medical History: Reports: Hx Irritable Bowel Musculoskeletal Medical History: Denies Hx Arthritis, Reports Hx Musculoskeletal Deformity, Reports Hx Musculoskeletal Trauma Psychiatric Medical History: Reports: Hx Anxiety, Hx Attention Deficit Hyperactivity Disorder, Hx Depression - and anxiety, Hx Obsessive Compulsive Disorder Traumatic Medical History: Reports: Hx Fractures - left foot Past Surgical History: Reports: Hx Appendectomy, Hx Hysterectomy, Hx Tonsillectomy - Immunizations Immunizations up to date: Yes Hx Diphtheria, Pertussis, Tetanus Vaccination: Yes Hx Pneumococcal Vaccination: 01/12/13 Review of Systems - Review of Systems Notes: Constitutional: Negative for fever. HENT: Positive for sore throat. Eyes: Negative for visual changes. Cardiovascular: Negative for chest pain. Respiratory: Positive for cough Gastrointestinal: Negative for abdominal pain, positive for nausea and vomiting Genitourinary: Negative for dysuria. Musculoskeletal: Negative for back pain. Skin: Negative for rash. Neurological: Negative for headaches, weakness or numbness. 10 point ROS negative except as marked above and in HPI. Physical Exam - Vital signs Vitals: Temp Pulse Resp BP Pulse Ox 99 F 89 18 132/85 H 99 04/18/18 22:57 04/18/18 22:57 04/18/18 22:57 04/18/18 22:57 04/18/18 22:57 Interpretation: Normal Notes: PHYSICAL EXAMINATION: GENERAL: Appears mildly unwell but in no acute distress HEAD: Atraumatic, normocephalic. EYES: Pupils equal round and reactive to light, extraocular movements intact, sclera anicteric, conjunctiva are normal. ENT: nares patent, oropharynx clear without exudates. Moderately dry mucous membranes. NECK: Normal range of motion, supple without lymphadenopathy LUNGS: Breath sounds clear to auscultation bilaterally and equal. No wheezes rales or rhonchi. HEART: Regular rate and rhythm without murmurs ABDOMEN: Soft, nontender, normoactive bowel sounds. No guarding, no rebound. No masses appreciated. EXTREMITIES: Normal range of motion, no pitting or edema. No cyanosis. NEUROLOGICAL: No focal neurological deficits. Moves all extremities spontaneously and on command. PSYCH: Normal mood, normal affect. SKIN: Warm, Dry, normal turgor, no rashes or lesions noted. Course - Re-evaluation Re-evalutation: 04/19/18 02:19 Patient presents with cough, vomiting, diarrhea, and fever at home consistent with a flulike illness although our flu test here is negative. Clinical history and exam is not consistent with an acute bacterial meningitis, encephalitis, pneumonia, there is no evidence of a cellulitis on examination. Patient likewise denies any urinary symptoms. Chest x-ray is clear without any evidence of an acute pneumonia. Urinalysis without any evidence of a pyelonephritis. Patient does not have any focal abdominal tenderness to suggest an acute biliary pathology, acute appendicitis, acute mesenteric ischemia, bowel obstruction, bowel, or any other life-threatening acute intra-abdominal pathology as the etiology of the fever and additional symptoms today. Labs are otherwise unremarkable. Patient is tolerated oral intake without difficulty. Vitals at time of reassessment are within normal limits. At this time will discharge with return precautions and follow-up recommendations. Verbal discharge instructions given a the bedside and opportunity for questions given. Medication warnings reviewed. Patient is in agreement with this plan and has verbalized unde rstanding of return precautions and the need for primary care follow-up in the next 24-72 hours. - Vital Signs Vital signs: Temp Pulse Resp BP Pulse Ox 98 F 78 19 125/78 100 04/19/18 02:43 04/19/18 02:43 04/19/18 02:43 04/19/18 02:43 04/19/18 02:43 - Laboratory Result Diagrams: 04/19/18 00:55 04/19/18 00:55 - Diagnostic Test Radiology reviewed: Image reviewed, Reports reviewed Radiology results interpreted by me: 04/19/18 02:19 Chest x-ray: No acute infiltrate or pneumothorax Discharge - Discharge Clinical Impression: Viral upper respiratory infection, Drug-induced nausea and vomiting, Cough Condition: Good Disposition: HOME, SELF-CARE Additional Instructions: Your symptoms are likely due to a viral infection although you flu testing is normal today. Discontinue the Tamiflu which was prescribed as this medication does not work and you do not have the flu. The only treatment at this time is supportive care including drinking plenty of fluids, Tylenol and ibuprofen, as well as nausea medicines which you already have available at home. Your symptoms will likely last for 7-10 days. Please return to the emergency department immediately if you become confused, have persistent vomiting, pass out, have severe headache, or have any other symptoms that are worrisome to you. Follow-up with your primary care doctor in the next several days. Forms: Return to Work Referrals: TAHIR FREDERICK PA-C [Primary Care Provider] - Follow up as needed
[2018-04-19 02:44] VITALS: BP 125/78
[2018-04-19 03:08] LABS: ALANINE AMINOTRANSFERASE 13 U/L (9-52); ALBUMIN 3.9 g/dL (3.5-5.0); ALKALINE PHOSPHATASE 60 U/L (38-126); ANION GAP 9 (5-19); ASPARTATE AMINO TRANSFERASE 19 U/L (14-36); BILIRUBIN,DIRECT 0.3 mg/dL (0.0-0.4); BILIRUBIN,TOTAL 0.3 mg/dL (0.2-1.3); BLOOD UREA NITROGEN 10 mg/dL (7-20); CALCIUM 8.8 mg/dL (8.4-10.2); CARBON DIOXIDE 17 mmol/L (22-30); CHLORIDE 114 mmol/L (98-107); GLUCOSE 100 mg/dL (75-110); POTASSIUM 4.1 mmol/L (3.6-5.0); SODIUM 140.3 mmol/L (137-145); TOTAL PROTEIN 6.9 g/dL (6.3-8.2)
== END 2018-04-19 02:43 | disposition home or self-care (01) ==
LOC: ER 22:56
DX: J06.9 Acute upper respiratory infection, unspecified (principal); B97.89 Other viral agents as the cause of diseases classified elsewhere; R05 Cough; T50.905A Adverse effect of unspecified drugs, medicaments and biological substances, initial encounter; R11.2 Nausea with vomiting, unspecified; R10.9 Unspecified abdominal pain; M79.10 Myalgia, unspecified site; R09.81 Nasal congestion; J02.9 Acute pharyngitis, unspecified; R63.0 Anorexia; J45.909 Unspecified asthma, uncomplicated
CPT/HCPCS: 99284; 96361; 96374; 36415; 84703; 85027; 80053; 81001; 87804; 71046; J2405; J7120

== ENCOUNTER 2018-07-16 20:18 | Emergency (ER) | payer MEDICAID ==
[2018-07-16] MEDS ORDERED: KETOROLAC TROMETHAMINE INJ/PF 30 MG/1 ML SDV IM ONE (22:00)
[2018-07-16] MEDS ORDERED: IPRATROPIUM/ALBUTEROL 0.5-2.5 MG/3 ML AMPUL NEB ONE (22:00)
--- NOTE | 2018-07-16 22:03 | ER Document Report ---
ED Respiratory Problem - General Chief Complaint: Cold Symptoms Stated Complaint: COUGH,VOMITING,DIFFICULTY BREATHING Time Seen by Provider: 07/16/18 21:53 Mode of Arrival: Ambulatory Information source: Patient TRAVEL OUTSIDE OF THE [place] IN LAST 30 DAYS: No - HPI Patient complains to provider of: Cough Notes: Patient is here with complaints of cough. She states that she has been coughing for about a week now. Over the last day, she has had episodes of vomiting after coughing spells. No vomiting otherwise. No abdominal pain. She denies any nausea or diarrhea. She denies fevers. She is a smoker. She has exercise- induced asthma, but denies any other lung problems. Symptoms have been constant and moderate. She denies any sore throat. She states that sometimes she feels like she has mucus in the back of her throat that she is unable to clear. No difficulty breathing or swallowing. No rash. No ear pain. No chest pain aside from when she is coughing, no shortness of breath. No leg pain or leg swelling. She complains of some nasal congestion as well. She does have a history of seasonal allergies. She has tried taking [id number] antihistamines. She denies any other specific complaints at this time. - Related Data Allergies/Adverse Reactions: iodine [Iodine] Allergy (Verified 04/19/18 02:31) latex [Latex] Allergy (Verified 04/19/18 02:31) meperidine HCl [From Demerol] Allergy (Verified 04/19/18 02:31) morphine [Morphine] Allergy (Verified 04/19/18 02:31) lamotrigine [From Lamictal] Adverse Reaction (Verified 04/19/18 02:31) VOMITING levetiracetam [From Keppra] Adverse Reaction (Verified 04/19/18 02:31) Hallucinations Past Medical History - Social History Smoking Status: Current Some Day Smoker Chew tobacco use (# tins/day): No Drug Abuse: None Family History: Reviewed & Not Pertinent, Arthritis, CVA, DM, Hyperlipidemia, Hypertension, Malignancy Patient has suicidal ideation: No Patient has homicidal ideation: No - Past Medical History Cardiac Medical History: Reports: Hx Hypertension - with Denies: Hx Coronary Artery Disease, Hx Heart Attack Pulmonary Medical History: Reports: Hx Asthma - exercise induced Denies: Hx Bronchitis, Hx COPD, Hx Pneumonia Neurological Medical History: Reports: Hx Migraine, Hx Seizures - epilepsy, right sided numbness with seizures. Denies: Hx Cerebrovascular Accident Endocrine Medical History: Renal/ Medical History: Denies: Hx Peritoneal Dialysis GI Medical History: Reports: Hx Irritable Bowel Musculoskeletal Medical History: Denies Hx Arthritis, Reports Hx Musculoskeletal Deformity, Reports Hx Musculoskeletal Trauma Psychiatric Medical History: Reports: Hx Anxiety, Hx Attention Deficit Hyperactivity Disorder, Hx Depression - and anxiety, Hx Obsessive Compulsive Disorder Traumatic Medical History: Reports: Hx Fractures - left foot Past Surgical History: Reports: Hx Appendectomy, Hx Hysterectomy, Hx Tonsillectomy - Immunizations Immunizations up to date: Yes Hx Diphtheria, Pertussis, Tetanus Vaccination: Yes Hx Pneumococcal Vaccination: 01/12/13 Review of Systems - Review of Systems -: Yes All other systems reviewed and negative Physical Exam - Vital signs Vitals: Temp Pulse Resp BP Pulse Ox 98.8 F 120 H 20 130/96 H 100 07/16/18 20:42 07/16/18 20:42 07/16/18 20:42 07/16/18 20:42 07/16/18 20:42 - Notes Notes: GENERAL: alert, cooperative, nontoxic, no distress. HEAD: normocephalic, atraumatic EYES: conjunctiva pink without discharge, no external redness or swelling. EARS: no external swelling, no external redness, no mastoid redness, swelling, tenderness. Ear canals are clear without swelling or drainage. TMs pearly borges, no redness, no bulging, normal landmarks, no perforation. NOSE: atraumatic, no external swelling. clear rhinorrhea noted. MOUTH/THROAT: mucous membranes moist and pink, posterior pharynx without erythema, swelling, exudate. No trismus or drooling. NECK: soft, supple, full range of motion, no meningismus. CHEST: no distress, lungs clear and equal throughout. No wheezing, rales, rhonchi. Tight sounding cough. CARDIAC: regular rate and rhythm, no murmur, normal capillary refill, normal pulses. No peripheral edema noted. BACK: full range of motion, no CVA tenderness. EXTREMITIES: full range of motion of all extremities. No redness, no swelling. NEURO: alert and oriented A&O3, no focal deficits, full range of motion of all extremities. PYSCH: appropriate mood, affect. Patient is cooperative. SKIN: pink, warm, dry, no rash. Course - Re-evaluation Re-evalutation: 07/16/18 23:27 Patient feeling better after breathing treatment. Lung sounds have improved with improved variation. Chest x-ray is negative for pneumonia. Vitals are otherwise stable. Patient most likely with bronchitis. Patient will be discharged home with prednisone and Tessalon. She has albuterol inhalers already. She instructed to follow-up if not better in 1 week, sooner for worsening symptoms, high fever, significant trouble breathing, persistent vomiting, or for any further concerns. - Vital Signs Vital signs: Temp Pulse Resp BP Pulse Ox 98.8 F 94 20 130/96 H 100 07/16/18 20:42 07/16/18 22:02 07/16/18 20:42 07/16/18 20:42 07/16/18 20:42 - Diagnostic Test Radiology reviewed: Image reviewed, Reports reviewed Discharge - Discharge Clinical Impression: Bronchitis Condition: Stable Disposition: HOME, SELF-CARE Instructions: Bronchitis ([facility]) Additional Instructions: Take medication as prescribed. Stop smoking. Use inhaler as needed. Follow-up if not better in 1 week, sooner for worsening symptoms, high fever, persistent vomiting, difficulty breathing or swallowing, or for any further concerns. Prescriptions: Benzonatate [Tessalon Perle 100 mg Capsule] 100 mg PO Q8HP PRN #20 cap PRN Reason: Prednisone [Deltasone 20 mg Tablet] 3 tab PO DAILY 5 Days tablet Forms: Smoking Cessation Education Referrals: [facility] [Provider Group] - Follow up as needed
--- NOTE | 2018-07-16 22:29 | RADIOLOGY REPORT (SQ) ---
EXAM DESCRIPTION: XR CHEST 2 VIEWS COMPLETED DATE/TME: 07/16/2018 21:53 CLINICAL HISTORY: 38 years, Female, cough COMPARISON: 07/03/2016 chest NUMBER OF VIEWS: 2 TECHNIQUE: 2 view chest LIMITATIONS: None. FINDINGS: Heart size normal. Lungs clear. No pneumothorax IMPRESSION: Negative chest copyright 2010 [employer]- All Rights Reserved
[2018-07-16] MEDS ORDERED: PREDNISONE 20 MG TABLET PO ONE (23:28)
[2018-07-17 00:25] VITALS: BP 127/87
== END 2018-07-17 | disposition home or self-care (01) ==
LOC: ER 20:18
DX: J40 Bronchitis, not specified as acute or chronic (principal); R06.00 Dyspnea, unspecified; R11.10 Vomiting, unspecified; F17.200 Nicotine dependence, unspecified, uncomplicated; Z91.040 Latex allergy status; Z88.6 Allergy status to analgesic agent; Z90.710 Acquired absence of both cervix and uterus
CPT/HCPCS: 94640; 99283; 96372; 71046; J1885; J7512; J7620

== ENCOUNTER 2018-09-16 09:43 | Emergency (ER) | payer MEDICAID ==
[2018-09-16 09:48] VITALS: BP 123/71
--- NOTE | 2018-09-16 10:05 | ER Document Report ---
HPI - HPI Time Seen by Provider: 09/16/18 10:04 Pain Level: 4 Notes: Patient is a 38-year-old female with no significant past medical history who presents complaining of nasal congestion/discharge, irritated throat, dry cough, postnasal drip, some watery diarrhea over the past 4 days. Patient states that her fianc also has similar symptoms in the household. She is otherwise eating and drinking without difficulty. She is urinating normally. No other concerns or complaints at this time. Denies any headache, fever, neck pain, chest pain, palpitations, syncope, shortness of breath, wheeze, dyspnea, abdominal pain, nausea/vomiting, urinary retention, dysuria, hematuria, or rash. - ROS Systems Reviewed and Negative: Yes All other systems reviewed and negative - REPRODUCTIVE Reproductive: DENIES: : Past Medical History - Social History Smoking Status: Former Smoker Family History: Reviewed & Not Pertinent, Arthritis, CVA, DM, Hyperlipidemia, Hypertension, Malignancy - Past Medical History Cardiac Medical History: Reports: Hx Hypertension - with Denies: Hx Coronary Artery Disease, Hx Heart Attack Pulmonary Medical History: Reports: Hx Asthma - exercise induced Denies: Hx Bronchitis, Hx COPD, Hx Pneumonia Neurological Medical History: Reports: Hx Migraine, Hx Seizures - epilepsy, right sided numbness with seizures. Denies: Hx Cerebrovascular Accident Endocrine Medical History: Renal/ Medical History: Denies: Hx Peritoneal Dialysis GI Medical History: Reports: Hx Irritable Bowel Musculoskeletal Medical History: Denies Hx Arthritis, Reports Hx Musculoskeletal Deformity, Reports Hx Musculoskeletal Trauma Psychiatric Medical History: Reports: Hx Anxiety, Hx Attention Deficit Hyperactivity Disorder, Hx Depression - and anxiety, Hx Obsessive Compulsive Disorder Traumatic Medical History: Reports: Hx Fractures - left foot Past Surgical History: Reports: Hx Appendectomy, Hx Hysterectomy, Hx Tonsillectomy - Immunizations Immunizations up to date: Yes Hx Diphtheria, Pertussis, Tetanus Vaccination: Yes Hx Pneumococcal Vaccination: 01/12/13 Vertical Provider Document - CONSTITUTIONAL Agree With Documented VS: Yes Notes: PHYSICAL EXAMINATION: GENERAL: Well-appearing, well-nourished and in no acute distress. A&Ox4. Answers questions appropriately. Moves comfortably w/o notable distress HEAD: Atraumatic, normocephalic. EYES: Pupils equal round and reactive to light, extraocular movements intact, sclera anicteric, conjunctiva are normal. ENT: EAC clear b/l. TM's intact b/l without erythema, fluid, or perforation. Nares patent and with clear discharge. oropharynx no erythema without exudates. No tonsilar hypertrophy without erythema or exudate. No palatine shift. Uvula midline. No tongue protrusion. No drooling, hoarseness, or airway compromise. Moist mucous membranes. No sinus tenderness. NECK: Normal range of motion, supple without lymphadenopathy. No rigidity/meningismus. LUNGS: Breath sounds clear to auscultation bilaterally and equal. No wheezes rales or rhonchi. No retractions HEART: Regular rate and rhythm without murmurs, rubs, gallops. ABDOMEN: Soft, nontender, nondistended abdomen. No guarding, no rebound. Normal bowel sounds present. No CVA tenderness bilaterally. NEUROLOGICAL: Normal speech, normal gait. PSYCH: Normal mood, normal affect. SKIN: Warm, Dry, normal turgor, no rashes or lesions noted. - INFECTION CONTROL TRAVEL OUTSIDE OF THE [place] IN LAST 30 DAYS: No Course - Re-evaluation Re-evalutation: 09/16/18 10:06 Patient is an afebrile, well-hydrated, 38 year-old female who presents to the ED with acute URI/diarrhea, suspect viral. Vitals are acceptable. PE is otherwise unremarkable. No labs or imaging warranted at this time based on H&P. Patient has no significant cardiopulmonary or immunocompromised medical conditions. Patient's lungs are clear to auscultation bilaterally without tachycardia, hypoxia, or tachypnea. Patient is tolerating p.o. without any difficulties. Low suspicion for any meningitis, sepsis, peritonsillar/pharyngeal abscess, respiratory compromise, severe dehydration, or other emergent systemic condition at this time. Patient is aware this condition can change from initial presentation and she needs to monitor symptoms closely. Conservative measures otherwise for symptoms. Recheck with your PCM in 3-5 days. Return to the ED with any worsening/concerning symptoms otherwise as reviewed in discharge. Patient is in agreement. - Vital Signs Vital signs: Temp Pulse Resp BP Pulse Ox 99.5 F 88 15 123/71 98 09/16/18 09:47 09/16/18 09:47 09/16/18 09:47 09/16/18 09:47 09/16/18 09:47 Discharge - Discharge Clinical Impression: Acute URI Condition: Stable Disposition: HOME, SELF-CARE Instructions: Upper Respiratory Illness ([facility]) Additional Instructions: Maintain adequate fluid intake tylenol/ibuprofen as needed alternating every 3 hours for fever/body ache over the counter cold medication as needed for symptoms Humidified air may help Wash your hands regularly Wear a mask when coughing F/u: with your PCM in 3-5 days for a recheck Return to the ED with any fever, altered mental status/behavior, chest pain, palpitations, syncope, headache, neck pain/stiffness, shortness of breath, chest pains, wheezing, drooling, trouble swallowing/breathing, abdominal pain, n/v/d, rash, or worsening/concerning symptoms otherwise. Prescriptions: Benzonatate [Tessalon Perle 100 mg Capsule] 100 mg PO Q8HP PRN #15 cap PRN Reason: Forms: Return to Work Referrals: [facility] [Provider Group] - Follow up as needed
== END 2018-09-16 10:23 | disposition home or self-care (01) ==
LOC: ER 09:43
DX: J06.9 Acute upper respiratory infection, unspecified (principal); R09.81 Nasal congestion; R05 Cough; R09.82 Postnasal drip; R19.7 Diarrhea, unspecified; J45.909 Unspecified asthma, uncomplicated; Z87.891 Personal history of nicotine dependence
CPT/HCPCS: 99283

== ENCOUNTER 2019-04-04 14:24 | Emergency (ER) | payer MEDICAID ==
[2019-04-04] MEDS ORDERED: NORMAL SALINE 1000 ML 1,000 ML IV ONE ×2 (15:06→16:36)
[2019-04-04] MEDS ORDERED: ONDANSETRON HCL INJ/PF 4 MG/2 ML SDV IV ONE (15:06)
--- NOTE | 2019-04-04 15:09 | ER Document Report ---
ED Medical Screen (RME) - General Chief Complaint: Bloody Stools Stated Complaint: RECTAL BLEEDING Time Seen by Provider: 04/04/19 15:03 Primary Care Provider: MARCIA WALTER MD [Primary Care Provider] - Follow up as needed Information source: Patient Notes: Patient presents complaining of nausea and diarrhea for the past 5 days. Patient reports decreased appetite. Patient reports lower abdominal tenderness and feeling lightheaded. Patient denies any fever. Patient states she is had 6 diarrhea stools today 2 of which appeared bloody. Patient does have a history of previous hysterectomy, appendectomy and cholecystectomy. I have greeted and performed a rapid initial assessment of this patient. A comprehensive ED assessment and evaluation of the patient, analysis of test results and completion of the medical decision making process will be conducted by additional ED providers. TRAVEL OUTSIDE OF THE [place] IN LAST 30 DAYS: No - Related Data Allergies/Adverse Reactions: iodine [Iodine] Allergy (Verified 04/04/19 15:04) latex [Latex] Allergy (Verified 04/04/19 15:04) meperidine HCl [From Demerol] Allergy (Verified 04/04/19 15:04) morphine [Morphine] Allergy (Verified 04/04/19 15:04) lamotrigine [From Lamictal] Adverse Reaction (Verified 04/04/19 15:04) VOMITING levetiracetam [From Keppra] Adverse Reaction (Verified 04/04/19 15:04) Hallucinations Past Medical History - Social History Chew tobacco use (# tins/day): No Frequency of alcohol use: None Drug Abuse: None Family history: Reviewed & Not Pertinent - Past Medical History Cardiac Medical History: Reports: Hx Hypertension - with Denies: Hx Coronary Artery Disease, Hx Heart Attack Pulmonary Medical History: Reports: Hx Asthma - exercise induced Denies: Hx Bronchitis, Hx COPD, Hx Pneumonia Neurological Medical History: Reports: Hx Migraine, Hx Seizures - epilepsy, right sided numbness with seizures. Denies: Hx Cerebrovascular Accident Endocrine Medical History: Renal/ Medical History: Denies: Hx Peritoneal Dialysis GI Medical History: Reports: Hx Irritable Bowel Musculoskeltal Medical History: Denies Hx Arthritis, Reports Hx Musculoskeletal Deformity, Reports Hx Musculoskeletal Trauma Psychiatric Medical History: Reports: Hx Anxiety, Hx Attention Deficit Hyperactivity Disorder, Hx Depression - and anxiety, Hx Obsessive Compulsive Disorder Traumatic Medical History: Reports: Hx Fractures - left foot Past Surgical History: Reports: Hx Appendectomy, Hx Hysterectomy, Hx Tonsillectomy - Immunizations Immunizations up to date: Yes Hx Diphtheria, Pertussis, Tetanus Vaccination: Yes Physical Exam - Vital signs Vitals: Temp Pulse Resp BP Pulse Ox 98.6 F 104 H 16 137/78 H 99 04/04/19 14:34 04/04/19 14:34 04/04/19 14:34 04/04/19 14:34 04/04/19 14:34 - Abdominal Inspection: Obese Tenderness: Tender - Lower abdomen Course - Vital Signs Vital signs: Temp Pulse Resp BP Pulse Ox 98.6 F 104 H 16 137/78 H 99 04/04/19 15:04 04/04/19 14:34 04/04/19 15:04 04/04/19 14:34 04/04/19 15:04 Doctor's Discharge - Discharge Referrals: MARCIA WALTER MD [Primary Care Provider] - Follow up as needed
[2019-04-04 16:32] LABS: ABSOLUTE EOSINOPHILS # (AUTO) 0.1 10^3/uL (0.0-0.6); ABSOLUTE LYMPHOCYTES (AUTO) 1.1 10^3/uL (0.5-4.7); ABSOLUTE MONOCYTES (AUTO) 0.2 10^3/uL (0.1-1.4); ABSOLUTE NEUT (AUTO) 2.8 10^3/uL (1.7-8.2); BASOPHILS % (AUTO) 0.4 % (0-2); EOSINOPHILS % (AUTO) 2.4 % (0-6); HEMATOCRIT 38.9 % (36.0-47.0); LYMPHOCYTES % (AUTO) 25.8 % (13-45); MEAN CORPUSCULAR HEMOGLOBIN 31.5 pg (27.0-33.4); MEAN CORPUSCULAR HGB CONC 33.4 g/dL (32.0-36.0); MEAN CORPUSCULAR VOLUME 94 fl (80-97); MONOCYTES % (AUTO) 4.5 % (3-13); PLATELET COUNT 167 10^3/uL (150-450); RED BLOOD COUNT 4.12 10^6/uL (3.72-5.28); RED CELL DISTRIBUTION WIDTH 13.3 % (11.5-14.0); SEGMENTED NEUTROPHILS % (AUTO) 66.9 % (42-78); TOTAL CELLS COUNTED % (AUTO) 100 %; WHITE BLOOD COUNT 4.2 10^3/uL (4.0-10.5)
--- NOTE | 2019-04-04 16:33 | ER Document Report ---
ED General - General Chief Complaint: Bloody Stools Stated Complaint: RECTAL BLEEDING Time Seen by Provider: 04/04/19 15:03 Primary Care Provider: MARCIA WALTER MD [ACTIVE STAFF] - Follow up as needed TRAVEL OUTSIDE OF THE [place] IN LAST 30 DAYS: No - Related Data Allergies/Adverse Reactions: iodine [Iodine] Allergy (Verified 04/04/19 15:04) latex [Latex] Allergy (Verified 04/04/19 15:04) meperidine HCl [From Demerol] Allergy (Verified 04/04/19 15:04) morphine [Morphine] Allergy (Verified 04/04/19 15:04) lamotrigine [From Lamictal] Adverse Reaction (Verified 04/04/19 15:04) VOMITING levetiracetam [From Keppra] Adverse Reaction (Verified 04/04/19 15:04) Hallucinations Home Medications: oxtellar xr. trocandi. mgalady Past Medical History - General Information source: Patient - Social History Smoking Status: Never Smoker Chew tobacco use (# tins/day): No Frequency of alcohol use: None Drug Abuse: None Family History: Reviewed & Not Pertinent, Arthritis, CVA, DM, Hyperlipidemia, Hypertension, Malignancy Patient has suicidal ideation: No Patient has homicidal ideation: No - Past Medical History Cardiac Medical History: Reports: Hx Hypertension - with Denies: Hx Coronary Artery Disease, Hx Heart Attack Pulmonary Medical History: Reports: Hx Asthma - exercise induced Denies: Hx Bronchitis, Hx COPD, Hx Pneumonia Neurological Medical History: Reports: Hx Migraine, Hx Seizures - epilepsy, right sided numbness with seizures. Denies: Hx Cerebrovascular Accident Endocrine Medical History: Renal/ Medical History: Denies: Hx Peritoneal Dialysis GI Medical History: Reports: Hx Irritable Bowel Musculoskeletal Medical History: Denies Hx Arthritis, Reports Hx Musculoskeletal Deformity, Reports Hx Musculoskeletal Trauma Psychiatric Medical History: Reports: Hx Anxiety, Hx Attention Deficit Hyperactivity Disorder, Hx Depression - and anxiety, Hx Obsessive Compulsive D isorder Traumatic Medical History: Reports: Hx Fractures - left foot Past Surgical History: Reports: Hx Appendectomy, Hx Hysterectomy, Hx Tonsillectomy - Immunizations Immunizations up to date: Yes Hx Diphtheria, Pertussis, Tetanus Vaccination: Yes Hx Pneumococcal Vaccination: 01/12/13 Physical Exam - Vital signs Vitals: Temp Pulse Resp BP Pulse Ox 98.6 F 104 H 16 137/78 H 99 04/04/19 14:34 04/04/19 14:34 04/04/19 14:34 04/04/19 14:34 04/04/19 14:34 - Notes Notes: Patient presents emerge department planing crampy lower abdominal pain is been on for the past couple days has been associated nausea vomiting and diarrhea. T he diarrhea is been loose with no blood. However today she had 2 episodes of bloody stool bright red but no clots. The stool is been a normal color. Report she is been a little bit lightheaded when she is been standing for a while but no chest pain shortness of breath palpitations fevers or dysuria. She reports he finished a course of antibiotics about 2-1/2 weeks ago for dog bite and thinks was Augmentin no sick contacts Past medical history sniffing for seizures no diabetes hypertension or heart disease. Surgical history includes hysterectomy appendectomy and cholecystectomy. Also has a history of a hemorrhagic cyst Family history is negative for inflammatory bowel disease Social history she does smoke but does not drink Review of systems pertinent positives and negatives in HPI otherwise all the systems were reviewed and acutely negative Allergies patient reports when she had morphine she had developed some localized redness more in the IV site treated with Benadryl with Demerol she had sounds like a dystonic reaction but no true anaphylaxis she had iodine during surgery plastic a skin prep and had a reaction but unclear type of reaction. She reports has not had CT with contrast PHYSICIAN EXAM -vital signs are noted triage note and note from triage reviewed GENERAL: Well-appearing, well-nourished and in __mild____ HEAD: Atraumatic, normocephalic. EYES: Pupils equal round and reactive to light, extraocular movements intact, sclera anicteric, conjunctiva are normal. ENT: nares patent, oropharynx clear without exudates. Slightly dry mucous membranes. NECK: supple without lymphadenopathy LUNGS: Breath sounds clear to auscultation bilaterally and equal. No wheezes rales or rhonchi. HEART: Rapid rate and regular rhythm without murmurs ABDOMEN: Soft, she is very minimal tenderness to deep palpation in the right lower quadrant and suprapubic area. There is nontender normoactive bowel sounds. EXTREMITIES: No deformity, no edema. NEUROLOGICAL: No focal neurological deficits. Moves all extremities spontaneously and on command. PSYCH: Normal mood, normal affect. SKIN: Warm, Dry, normal turgor, no rashes or lesions noted. BACK-nontender in the midline Rectal external rectal exam was performed with nursing staff present. There is no obvious fissures or hemorrhoids Differential diagnosis includes ovarian cyst colitis viral syndrome inflammatory bowel disease Course - Re-evaluation Re-evalutation: 04/04/19 19:44 ED patient is remained stable since serial exams abdominal pain is improved. She was given IV fluids fentanyl with notes of reaction. Medical decision making patient presents with lower abdominal pain and diarrhea. Her CT is unremarkable. She is feeling better at this point he is to be discharged home expect the blood is mostly more from the diarrhea there is no runs of colitis or diverticulitis on CT. Plan at this point was discharged home with a prescription for Cipro and Zofran. Rest drink plenty fluids and follow- up with her family doctor in 2 to 3 days if not improved Dictation was done using voice recognition software. There may be some grammatical errors which are unintentional I discussed results of laboratory findings and diagnostic test with patient/family. The treatment plan was explained and I reviewed the discharge instructions with them. Questions were answered. The patient/family verbalizes understanding - Vital Signs Vital signs: Temp Pulse Resp BP Pulse Ox 98.6 F 104 H 16 137/78 H 99 04/04/19 15:04 04/04/19 14:34 04/04/19 15:04 04/04/19 14:34 04/04/19 15:04 - Laboratory Result Diagrams: 04/04/19 16:21 04/04/19 16:21 Laboratory results interpreted by me: 04/04/19 16:21 Chloride 108 H Est GFR (MDRD) Non-Af 53 L Discharge - Discharge Clinical Impression: Nausea vomiting and diarrhea Abdominal pain Qualifiers: Abdominal location: right lower quadrant Qualified Code(s): R10.31 - Right lower quadrant pain Disposition: HOME, SELF-CARE Instructions: Abdominal Pain ([facility]), Antinausea Medication ([facility]), Diarrhea, Nonspecific ([facility]), Antispasmodics ([facility]), Vomiting ([facility]) Additional Instructions: Please review the discharge instructions, they will tell you about your disease/injury and what you need to return to the ED for Return to the ED if you feel worse or can follow-up with your family doctor Stay on clear liquids for the next 8 hours and then bland diet for 2 to 3 days avoiding fatty greasy foods Return if you stools get black like tar , if you start passing large clots in your stool or you get lightheaded and dizzy when you stand up Follow-up with your family doctor in 2 to 3 days if not improved Stop the antibiotic and contact your family doctor or return to the ED immediately if you develop any of the following symptoms even if you finish the antibiotics. These include pain or swelling in any joint like the elbow knee numbness tingling or burning in her hands or feet disorientation agitation or problems with your memory or pain attention Prescriptions: Ondansetron [Zofran Odt 4 mg Tablet] 1 tab PO Q4HP PRN #12 tab.rapdis PRN Reason: Dicyclomine HCl [Bentyl 20 mg Tablet] 20 mg PO QID #20 tablet Ciprofloxacin HCl [Cipro 500 mg Tablet] 500 mg PO BID #6 tablet Referrals: MARCIA WALTER MD [ACTIVE STAFF] - Follow up as needed
[2019-04-04 16:49] LABS: ALBUMIN 4.2 g/dL (3.5-5.0); ALKALINE PHOSPHATASE 57 U/L (38-126); ANION GAP 11 (5-19); ASPARTATE AMINO TRANSFERASE 21 U/L (14-36); BILIRUBIN,DIRECT 0.1 mg/dL (0.0-0.4); BILIRUBIN,TOTAL 0.3 mg/dL (0.2-1.3); BLOOD UREA NITROGEN 14 mg/dL (7-20); CALCIUM 9.2 mg/dL (8.4-10.2); CARBON DIOXIDE 24 mmol/L (22-30); CHLORIDE 108 mmol/L (98-107); GLUCOSE 89 mg/dL (75-110); POTASSIUM 4.4 mmol/L (3.6-5.0); TOTAL PROTEIN 7.3 g/dL (6.3-8.2)
[2019-04-04] MEDS ORDERED: FENTANYL CITRATE INJ/PF 100 MCG/2 ML AMPUL IV ONE (16:55)
[2019-04-04 18:29] LABS: AMORPHOUS SEDIMENT,URINE TRACE /HPF; APPEARANCE,URINE CLOUDY; BILIRUBIN,URINE NEGATIVE (NEGATIVE); COLOR,URINE YELLOW; GLUCOSE, URINE NEGATIVE (NEGATIVE); KETONES,URINE NEGATIVE (NEGATIVE); LEUKOCYTE ESTERASE,URINE NEGATIVE (NEGATIVE); NITRITE,URINE NEGATIVE (NEGATIVE); PROTEIN,URINE NEGATIVE (NEGATIVE); URINE SPECIFIC GRAVITY 1.015; UROBILINOGEN,URINE NEGATIVE mg/dL (<2.0)
--- NOTE | 2019-04-04 18:31 | RADIOLOGY REPORT (SQ) ---
EXAM DESCRIPTION: CT ABD/PELVIS NO ORAL OR IV COMPLETED DATE/TIME: 04/04/2019 5:38 pm REASON FOR STUDY: Right lower quadrant pain COMPARISON: None. TECHNIQUE: CT scan of the abdomen and pelvis performed without intravenous or oral contrast. Images reviewed with lung, soft tissue, and bone windows. Reconstructed coronal and sagittal MPR images revi ewed. All images stored on PACS. All CT scanners at this facility use dose modulation, iterative reconstruction, and/or weight based d osing when appropriate to reduce radiation dose to as low as reasonably achievable (ALARA). [facility]: Dose Right [facility]: CareDose [facility]: Dose Right [facility]: Teradose 4D [facility]: Smart [employer] RADIATION DOSE: CT Rad equipment meets quality standard of care and radiation dose reduction techniq ues were employed. CTDIvol: 10.3 mGy. DLP: 575 mGy-cm.mGy. LIMITATIONS: None. FINDINGS: LOWER CHEST: No significant findings. No nodules or infiltrates. NON-CONTRASTED LIVER, SPLEEN, ADRENALS: Evaluation limited by lack of IV contrast. No identified sign ificant masses. PANCREAS: No masses. No peripancreatic inflammatory changes. GALLBLADDER: Surgically absent. RIGHT KIDNEY AND URETER: No cysts identified. No solid masses. No calcified stones. No hydronephrosis or hydroureter. LEFT KIDNEY AND URETER: No cysts identified. No solid masses. No calcified stones. No hydronephrosis or hydroureter. AORTA AND RETROPERITONEUM: No aneurysm. No retroperitoneal masses or adenopathy. BOWEL AND PERITONEAL CAVITY: No obvious masses or inflammatory changes. Mild colonic diverticulosis. No free fluid. APPENDIX: Surgically absent. PELVIS, BLADDER, AND ABDOMINAL WALL:Prior hysterectomy No free fluid. Unremarkable bladder. BONES: No acute findings. OTHER: No other significant finding. IMPRESSION: NO ACUTE FINDINGS. TECHNICAL DOCUMENTATION: JOB ID: [id number] Quality ID # [id number]: Final reports with documentation of one or more dose reduction techniques (e.g., Au tomated exposure control, adjustment of the mA and/or kV according to patient size, use of iterative reconstruction technique) 2010 [employer]- All Rights Reserved Reading location - IP/workstation name: [employer]
[2019-04-04] MEDS ORDERED: DICYCLOMINE HCL 20 MG TABLET PO ONE (19:54)
[2019-04-04 21:48] VITALS: BP 110/54
== END 2019-04-04 21:51 | disposition home or self-care (01) ==
LOC: ER 14:24
DX: R10.31 Right lower quadrant pain (principal); R10.30 Lower abdominal pain, unspecified; R11.2 Nausea with vomiting, unspecified; R19.7 Diarrhea, unspecified; Z91.040 Latex allergy status; Z88.6 Allergy status to analgesic agent; Z90.710 Acquired absence of both cervix and uterus
CPT/HCPCS: 99284; 96361; 96374; 96375; 36415; 83690; 85025; 80053; 81001; 74176; J3490; J3010; J2405; J7030

== ENCOUNTER 2019-04-08 17:08 | Emergency (ER) | payer MEDICAID ==
[2019-04-08] MEDS ORDERED: IBUPROFEN 800 MG TABLET PO ONE (20:44)
--- NOTE | 2019-04-08 20:47 | ER Document Report ---
ED Medical Screen (RME) - General Chief Complaint: Abdominal Pain Stated Complaint: FLANK PAIN Time Seen by Provider: 04/08/19 20:38 Primary Care Provider: PHONG LOVETT MD [Primary Care Provider] - Follow up as needed Mode of Arrival: Ambulatory Information source: Patient Notes: 39-year-old female presents emergency department with right flank pain. She reports she was seen here on Friday for the same pain plus having bloody diarrhea. She was treated for diverticulosis with antibiotic. She saw her primary care provider who told her that she probably had Salmonella and treated with a different antibiotic. She is now taking Cipro and Septra. Patient reports she still having flank pain. She saw her provider today and they put in a referral to GI and told her go the ER. She denies fever vomiting. She denies further bloody diarrhea. Denies history of kidney stones. I have greeted and performed a rapid initial assessment of this patient. A comprehensive ED assessment and evaluation of the patient, analysis of test results and completion of the medical decision making process will be conducted by additional ED providers. TRAVEL OUTSIDE OF THE [place] IN LAST 30 DAYS: No - Related Data Allergies/Adverse Reactions: iodine [Iodine] Allergy (Verified 04/04/19 15:04) latex [Latex] Allergy (Verified 04/04/19 15:04) meperidine HCl [From Demerol] Allergy (Verified 04/04/19 15:04) morphine [Morphine] Allergy (Verified 04/04/19 15:04) lamotrigine [From Lamictal] Adverse Reaction (Verified 04/04/19 15:04) VOMITING levetiracetam [From Keppra] Adverse Reaction (Verified 04/04/19 15:04) Hallucinations Home Medications: bentyl. cipro. bactrim Past Medical History - Social History Family history: Reviewed & Not Pertinent - Past Medical History Cardiac Medical History: Reports: Hx Hypertension - with Denies: Hx Coronary Artery Disease, Hx Heart Attack Pulmonary Medical History: Reports: Hx Asthma - exercise induced Denies: Hx Bronchitis, Hx COPD, Hx Pneumonia Neurological Medical History: Reports: Hx Migraine, Hx Seizures - epilepsy, right sided numbness with seizures. Denies: Hx Cerebrovascular Accident Endocrine Medical History: Renal/ Medical History: Denies: Hx Peritoneal Dialysis GI Medical History: Reports: Hx Irritable Bowel Musculoskeltal Medical History: Denies Hx Arthritis, Reports Hx Musculoskeletal Deformity, Reports Hx Musculoskeletal Trauma Psychiatric Medical History: Reports: Hx Anxiety, Hx Attention Deficit Hyperactivity Disorder, Hx Depression - and anxiety, Hx Obsessive Compulsive Disorder Traumatic Medical History: Reports: Hx Fractures - left foot Past Surgical History: Reports: Hx Appendectomy, Hx Hysterectomy, Hx Tonsillectomy - Immunizations Immunizations up to date: Yes Hx Diphtheria, Pertussis, Tetanus Vaccination: Yes Physical Exam - Vital signs Vitals: Temp Pulse Resp BP Pulse Ox 98.3 F 85 18 129/83 H 100 04/08/19 17:35 04/08/19 17:35 04/08/19 17:35 04/08/19 17:35 04/08/19 17:35 Course - Vital Signs Vital signs: Temp Pulse Resp BP Pulse Ox 98.3 F 85 18 129/83 H 100 04/08/19 17:35 04/08/19 17:35 04/08/19 17:35 04/08/19 17:35 04/08/19 17:35 Doctor's Discharge - Discharge Referrals: PHONG LOVETT MD [Primary Care Provider] - Follow up as needed
[2019-04-08 21:36] LABS: ABSOLUTE EOSINOPHILS # (AUTO) 0.1 10^3/uL (0.0-0.6); ABSOLUTE LYMPHOCYTES (AUTO) 1.5 10^3/uL (0.5-4.7); ABSOLUTE MONOCYTES (AUTO) 0.2 10^3/uL (0.1-1.4); ABSOLUTE NEUT (AUTO) 3.4 10^3/uL (1.7-8.2); BASOPHILS % (AUTO) 0.3 % (0-2); EOSINOPHILS % (AUTO) 2.4 % (0-6); HEMATOCRIT 39.1 % (36.0-47.0); HEMOGLOBIN 13.1 g/dL (12.0-15.5); MEAN CORPUSCULAR HEMOGLOBIN 31.3 pg (27.0-33.4); MEAN CORPUSCULAR HGB CONC 33.4 g/dL (32.0-36.0); MEAN CORPUSCULAR VOLUME 94 fl (80-97); MONOCYTES % (AUTO) 4.6 % (3-13); PLATELET COUNT 172 10^3/uL (150-450); RED BLOOD COUNT 4.18 10^6/uL (3.72-5.28); SEGMENTED NEUTROPHILS % (AUTO) 64.7 % (42-78); TOTAL CELLS COUNTED % (AUTO) 100 %; WHITE BLOOD COUNT 5.2 10^3/uL (4.0-10.5)
[2019-04-08 21:48] LABS: ALBUMIN 4.2 g/dL (3.5-5.0); ALKALINE PHOSPHATASE 53 U/L (38-126); ANION GAP 14 (5-19); ASPARTATE AMINO TRANSFERASE 17 U/L (14-36); BILIRUBIN,DIRECT 0.2 mg/dL (0.0-0.4); BILIRUBIN,TOTAL 0.3 mg/dL (0.2-1.3); BLOOD UREA NITROGEN 11 mg/dL (7-20); CALCIUM 8.9 mg/dL (8.4-10.2); CARBON DIOXIDE 17 mmol/L (22-30); CHLORIDE 110 mmol/L (98-107); GLUCOSE 116 mg/dL (75-110); TOTAL PROTEIN 7.2 g/dL (6.3-8.2)
[2019-04-08 21:50] LABS: APPEARANCE,URINE SLIGHTLY-CLOUDY; BILIRUBIN,URINE NEGATIVE (NEGATIVE); COLOR,URINE YELLOW; GLUCOSE, URINE NEGATIVE (NEGATIVE); KETONES,URINE NEGATIVE (NEGATIVE); LEUKOCYTE ESTERASE,URINE NEGATIVE (NEGATIVE); NITRITE,URINE NEGATIVE (NEGATIVE); PROTEIN,URINE 30 mg/dL (NEGATIVE); URINE SPECIFIC GRAVITY 1.025; UROBILINOGEN,URINE NEGATIVE mg/dL (<2.0)
--- NOTE | 2019-04-08 23:02 | RADIOLOGY REPORT (SQ) ---
EXAM DESCRIPTION: US RETROPERITONEUM LIMITED COMPLETED DATE/TME: 04/08/2019 20:44 CLINICAL HISTORY: 39 years, Female, RIGHT FLANK PAIN COMPARISON: CT 04/04/2019 TECHNIQUE: Limited retroperitoneal ultrasound LIMITATIONS: None. FINDINGS: The right kidney measures 10.2 x 4.5 x 4.5 cm. Left kidney measures 9.6 x 4.6 x 4.4 cm. No renal calculus, mass, or hydronephrosis. No perinephric fluid collection. Urinary bladder is not completely distended, limiting its evaluation IMPRESSION: Unremarkable appearance to the kidneys bilaterally copyright 2010 [employer]- All Rights Reserved
[2019-04-09] MEDS ORDERED: RINGERS SOLUTION,LACTATED 1,000 ML IV ONE (00:36)
--- NOTE | 2019-04-09 00:43 | ER Document Report ---
ED General - General Chief Complaint: Abdominal Pain Stated Complaint: FLANK PAIN Time Seen by Provider: 04/08/19 20:38 Mode of Arrival: Ambulatory Notes: Patient is a 39-year-old female that comes to the emergency department for chief complaint of diarrhea, abdominal cramping, flank pain mainly on the right. She states that she was seen here initially and had a CAT scan which was negative, diagnosed with colitis for blood in stool, diarrhea, abdominal pain, states she was treated with Cipro and Bentyl. She states that she still is having symptoms so she followed with her primary care and they placed her on Bactrim as well. She states that she was seen again by her primary care and has been referred to gastroenterology. She states that she still has some pain in her right mid back area and she keeps having diarrhea. She states she is only had 3 episodes of diarrhea today and it only happens after she eats. This is nonbloody. She denies fever. She denies abdominal pain. She denies chest pain or shortness of breath. She reports past medical history of cholecystectomy, appendectomy, hysterectomy. She denies history of kidney stones. TRAVEL OUTSIDE OF THE [place] IN LAST 30 DAYS: No - Related Data Allergies/Adverse Reactions: iodine [Iodine] Allergy (Verified 04/04/19 15:04) latex [Latex] Allergy (Verified 04/04/19 15:04) meperidine HCl [From Demerol] Allergy (Verified 04/04/19 15:04) morphine [Morphine] Allergy (Verified 04/04/19 15:04) lamotrigine [From Lamictal] Adverse Reaction (Verified 04/04/19 15:04) VOMITING levetiracetam [From Keppra] Adverse Reaction (Verified 04/04/19 15:04) Hallucinations Home Medications: bentyl. cipro. bactrim Past Medical History - General Information source: Patient - Social History Smoking Status: Current Every Day Smoker Frequency of alcohol use: None Drug Abuse: None Lives with: Family Family History: Reviewed & Not Pertinent, Arthritis, CVA, DM, Hyperlipidemia, Hypertension, Malignancy Patient has suicidal ideation: No Patient has homicidal ideation: No - Past Medical History Cardiac Medical History: Reports: Hx Hypertension - with Denies: Hx Coronary Artery Disease, Hx Heart Attack Pulmonary Medical History: Reports: Hx Asthma - exercise induced Denies: Hx Bronchitis, Hx COPD, Hx Pneumonia Neurological Medical History: Reports: Hx Migraine, Hx Seizures - epilepsy, right sided numbness with seizures. Denies: Hx Cerebrovascular Accident Endocrine Medical History: Renal/ Medical History: Denies: Hx Peritoneal Dialysis GI Medical History: Reports: Hx Irritable Bowel Musculoskeletal Medical History: Denies Hx Arthritis, Reports Hx Musculoskeletal Deformity, Reports Hx Musculoskeletal Trauma Psychiatric Medical History: Reports: Hx Anxiety, Hx Attention Deficit Hypera ctivity Disorder, Hx Depression - and anxiety, Hx Obsessive Compulsive Disorder Traumatic Medical History: Reports: Hx Fractures - left foot Past Surgical History: Reports: Hx Appendectomy, Hx Hysterectomy, Hx Tonsillectomy - Immunizations Immunizations up to date: Yes Hx Diphtheria, Pertussis, Tetanus Vaccination: Yes Hx Pneumococcal Vaccination: 01/12/13 Review of Systems - Review of Systems Constitutional: No symptoms reported EENT: No symptoms reported Cardiovascular: No symptoms reported Respiratory: No symptoms reported Gastrointestinal: See HPI Genitourinary: No symptoms reported Female Genitourinary: No symptoms reported Musculoskeletal: See HPI Skin: No symptoms reported Hematologic/Lymphatic: No symptoms reported Neurological/Psychological: No symptoms reported Physical Exam - Vital signs Vitals: Temp Pulse Resp BP Pulse Ox 98.3 F 85 18 129/83 H 100 04/08/19 17:35 04/08/19 17:35 04/08/19 17:35 04/08/19 17:35 04/08/19 17:35 - Notes Notes: GENERAL: Alert, interacts well. No acute distress. HEAD: Normocephalic, atraumatic. EYES: Pupils equal, round, and reactive to light. Extraocular movements intact. ENT: Oral mucosa moist, tongue midline. Oropharynx unremarkable. Airway patent. LUNGS: Clear to auscultation bilaterally, no wheezes, rales, or rhonchi. No respiratory distress. HEART: Regular rate and rhythm. No murmur ABDOMEN: Soft, non-tender. Non-distended. Bowel sounds present in all 4 quadrants. EXTREMITIES: Moves all 4 extremities spontaneously. No edema, normal radial and dorsalis pedis pulses bilaterally. No cyanosis. BACK: There is mild tenderness with palpation of the mid right thoracic region and up towards the scapula. No cervical, thoracic, lumbar midline tenderness. No saddle anesthesia, normal distal neurovascular exam. Moves all extremities in full range of motion. NEUROLOGICAL: Alert and oriented x3. Normal speech. Cranial nerves II through XII grossly intact. PSYCH: Smiling, laughing, well-appearing SKIN: Warm, dry, normal turgor. No rashes or lesions noted. Course - Re-evaluation Re-evalutation: CBC unremarkable. Chemistry showing low bicarbonate, borderline renal functioning, urine does indicate dehydration. No infection. Unremarkable otherwise. Vital signs unremarkable. Patient is talkative and alert, well- appearing on exam. Soft benign abdomen. No CVA tenderness, there is mild muscular tenderness over palpation of the right mid to upper back. Nonspecific. Ultrasound from triage is negative for any acute findings, patient just had a negative CAT scan. Patient has been treated with multiple rounds of antibiotics. However because of her very intermittent diarrhea I still have low suspicion of C. difficile. Based on her evaluation I have very low suspicion of acute abdomen or severe infection. Discussed options with patient. She is requesting discharge. Because of her dehydration and acidosis she was treated with lactated Ringer's. Signs unremarkable. Patient asymptomatic on reevaluation. Patient was given recommendations, she has GI follow-up already established, discussed return precautions. Patient states understanding and agreement. Stable at time of discharge. - Vital Signs Vital signs: Temp Pulse Resp BP Pulse Ox 97.7 F 65 12 115/68 99 04/09/19 02:42 04/09/19 02:42 04/09/19 02:42 04/09/19 02:42 04/09/19 02:42 - Laboratory Result Diagrams: 04/08/19 21:15 04/08/19 21:15 Laboratory results interpreted by me: 04/08/19 04/08/19 21:15 21:15 Chloride 110 H Carbon Dioxide 17 L Est GFR ( Amer) 59 L Est GFR (MDRD) Non-Af 49 L Glucose 116 H Urine Protein 30 H Discharge - Discharge Clinical Impression: Flank pain, Abdominal cramping Diarrhea Qualifiers: Diarrhea type: unspecified type Qualified Code(s): R19.7 - Diarrhea, unspecified Condition: Stable Disposition: HOME, SELF-CARE Additional Instructions: Your kidney ultrasound is normal. Your labs show dehydration and some acidosis as we discussed, you have been treated for this. Complete your current therapies, I recommend [id number] probiotics as well, take the muscle relaxer as prescribed if needed for your back. If symptoms continue follow-up with gastroenterology for additional evaluation and management. Return if you worsen including vomiting, severe worsening pain, fever, or any other concerning or worsening symptoms. Prescriptions: Cyclobenzaprine HCl [Flexeril 5 mg Tablet] 1 - 2 tab PO TID PRN #20 tablet PRN Reason: Forms: Return to Work
[2019-04-09 02:43] VITALS: BP 115/68
== END 2019-04-09 02:44 | disposition home or self-care (01) ==
LOC: ER 17:08
DX: R10.9 Unspecified abdominal pain (principal); R19.7 Diarrhea, unspecified; F17.200 Nicotine dependence, unspecified, uncomplicated; Z90.49 Acquired absence of other specified parts of digestive tract; Z90.710 Acquired absence of both cervix and uterus; Z91.040 Latex allergy status; Z88.6 Allergy status to analgesic agent
CPT/HCPCS: 99284; 96360; 36415; 85025; 80053; 81001; 76775; J3490; J7120

== ENCOUNTER 2019-05-10 09:48 | Day surgery (SDC) | payer MEDICAID ==
[2019-05-10] MEDS ORDERED: MIDAZOLAM 2 MG/2 ML INJ ONE (10:09)
[2019-05-10] MEDS ORDERED: PROPOFOL INJ 200 MG/20 ML VIAL IV ONE (11:36)
--- NOTE | 2019-05-10 12:15 | Operative Report ---
Operative Report DATE OF SURGERY: 05/10/19 Operative Report: The risks, benefits and alternatives of the procedure including the risk of bleeding, perforation requiring surgery have been explained to the patient in detail and informed consent has been obtained. The patient is placed in a left, lateral decubital position. Timeout was called. Propofol medication is administered. Rectal examination is done which did not reveal any masses, tears or fissures. An Olympus videoscope was introduced into the patient's rectum. Scope was then carefully advanced all the way to the cecum. Prep was good. Cecum was identified by the usual anatomical landmarks including the ileocecal valve and the appendiceal office. Photodocumentation is obtained. Scope was then sequentially pulled back via the various segments of the colon including the ascending colon, hepatic rectal, transverse colon, splenic flexure, descend ing colon finding to the rectosigmoid portions of the colon. Retroflexion maneuvers performed. PREOPERATIVE DIAGNOSIS: Change in bowel habits, abdominal pain POSTOPERATIVE DIAGNOSIS: Mild left hand side colon random biopsies obtained secondary to mild colitis OPERATION: EGD with biopsy SURGEON: BHAVESH LOYA ANESTHESIA: LMAC TISSUE REMOVED OR ALTERED: As noted above. COMPLICATIONS: None. ESTIMATED BLOOD LOSS: None. INTRAOPERATIVE FINDINGS: As noted above. PROCEDURE: Patient tolerated the procedure well. No immediate postprocedure complications are noted. Patient is discharged in good condition. Discharge date 05/10/2019. Discharge diet: Regular. Discharge activity: Regular. 2 to 3-week follow-up to discuss findings. Patient is instructed to call the office or proceed to the emergency room Should there be any further problems or questions. Wait on the pathology.
[2019-05-10 12:16] VITALS: BP 106/63
[2019-05-11] MEDS ORDERED: LACTATED RINGERS 1000 ML IV PRN (05:00)
[2019-05-11] MEDS ORDERED: LIDOCAINE 0.5% INJ-PF (5 MG/ML) 50 ML SDV SUBCUT PRN (05:00)
== END 2019-05-10 12:16 | disposition home or self-care (01) ==
LOC: END 09:48
PROVIDERS: ATTEND Internal Medicine Gastroenterology
DX: K52.9 Noninfective gastroenteritis and colitis, unspecified (principal); Z87.891 Personal history of nicotine dependence; Z79.899 Other long term (current) drug therapy; J45.909 Unspecified asthma, uncomplicated; E11.9 Type 2 diabetes mellitus without complications; G40.909 Epilepsy, unspecified, not intractable, without status epilepticus
CPT/HCPCS: 45380; 82962; 88305 ×2; 00811; J2250; J2704; 811

== ENCOUNTER 2019-08-04 16:07 | Emergency (ER) | payer MEDICAID ==
--- NOTE | 2019-08-04 16:36 | RADIOLOGY REPORT (SQ) ---
EXAM DESCRIPTION: CHEST SINGLE VIEW IMAGES COMPLETED DATE/TIME: 08/04/2019 4:24 pm REASON FOR STUDY: SHORTNESS OF BREATHE COMPARISON: Two-view chest 07/16/2018 EXAM PARAMETERS: NUMBER OF VIEWS: One view. TECHNIQUE: Single frontal radiographic view of the chest acquired. RADIATION DOSE: NA LIMITATIONS: None. FINDINGS: LUNGS AND PLEURA: No opacities, masses or pneumothorax. No pleural effusion. MEDIASTINUM AND HILAR STRUCTURES: No masses. Contour normal. HEART AND VASCULAR STRUCTURES: Heart normal in size. Normal vasculature. BONES: No acute findings. HARDWARE: None in the chest. OTHER: No other significant finding. IMPRESSION: NO ACUTE RADIOGRAPHIC FINDING IN THE CHEST. TECHNICAL DOCUMENTATION: JOB ID: [id number] 2010 [employer]- All Rights Reserved Reading location - IP/workstation name: [id number]
[2019-08-04 18:19] VITALS: BP 131/69
--- NOTE | 2019-08-04 18:31 | ER Document Report ---
HPI - HPI Time Seen by Provider: 08/04/19 17:37 Pain Level: 3 Context: Patient is a 39-year-old female who presents emergency department who presents to the emergency department with shortness of breath. Patient states that she was diagnosed with influenza 10 days ago. She finished 5 days worth of Tamiflu and states that the past 5 days she has not gotten any better. Patient continues to have a cough. She has been using an albuterol inhaler to help with her symptoms. - CONSTITUTIONAL Constitutional: REPORTS: Fever. DENIES: Chills - RESPIRATORY Respiratory: REPORTS: Trouble Breathing, Coughing - REPRODUCTIVE Reproductive: DENIES: : - MUSCULOSKELETAL Musculoskeletal: DENIES: Extremity pain, Swelling - DERM Skin Color: Normal Skin Problems: None Past Medical History - Social History Smoking Status: Current Some Day Smoker Chew tobacco use (# tins/day): No Frequency of alcohol use: None Drug Abuse: None Family History: Reviewed & Not Pertinent, Arthritis, CVA, DM, Hyperlipidemia, Hypertension, Malignancy Patient has suicidal ideation: No Patient has homicidal ideation: No - Past Medical History Cardiac Medical History: Reports: Hx Hypertension - with Denies: Hx Coronary Artery Disease, Hx Heart Attack Pulmonary Medical History: Reports: Hx Asthma - exercise induced Denies: Hx Bronchitis, Hx COPD, Hx Pneumonia Neurological Medical History: Reports: Hx Migraine, Hx Seizures - epilepsy, right sided numbness with seizures, LAST SEIZURE LAST FRIDAY. Denies: Hx Cerebrovascular Accident Endocrine Medical History: Renal/ Medical History: Denies: Hx Peritoneal Dialysis GI Medical History: Reports: Hx Irritable Bowel Musculoskeletal Medical History: Denies Hx Arthritis, Reports Hx Musculoskeletal Deformity, Reports Hx Musculoskeletal Trauma Psychiatric Medical History: Reports: Hx Anxiety, Hx Attention Deficit Hyperactivity Disorder, Hx Depression - and anxiety, Hx Obsessive Compulsive Disorder Traumatic Medical History: Reports: Hx Fractures - left foot Past Surgical History: Reports: Hx Appendectomy, Hx Hysterectomy, Hx Tonsillectomy - Immunizations Immunizations up to date: Yes Hx Diphtheria, Pertussis, Tetanus Vaccination: Yes Hx Pneumococcal Vaccination: 01/12/13 Vertical Provider Document - CONSTITUTIONAL Agree With Documented VS: Yes Exam Limitations: No Limitations General Appearance: No Apparent Distress - INFECTION CONTROL TRAVEL OUTSIDE OF THE [place] IN LAST 30 DAYS: No - HEENT HEENT: Atraumatic, Normocephalic, PERRLA - NECK Neck: Normal Inspection - RESPIRATORY Respiratory: Breath Sounds Normal, No Respiratory Distress - CARDIOVASCULAR Cardiovascular: Tachycardia - heart rate decreased went down with no intervention; see discharge vital signs Pulses: Normal: Radial - MUSCULOSKELETAL/EXTREMETIES Musculoskeletal/Extremeties: FROM - NEURO Level of Consciousness: Awake, Alert, Appropriate Motor/Sensory: No Motor Deficit, No Sensory Deficit - DERM Integumentary: Warm, Dry, No Rash Course - Re-evaluation Re-evalutation: 08/04/19 18:02 Patient presents with a clinical history and exam most consistent with an acute viral bronchitis. Patient is overall well in appearance without tachypnea, hypoxemia, or difficulty with ambulation. Breath sounds are clear bilaterally. No fever. Patient does have additional signs of upper respiratory infection including nasal congestion, sore throat, and sinus pressure. Will treat with bronchodilators, steroids, and Tessalon Perles. At this time will discharge with return precautions and follow-up recommendations. Verbal discharge instructions given a the bedside and opportunity for questions given. Medication warnings reviewed. Patient is in agreement with this plan and has verbalized understanding of return precautions and the need for primary care follow-up in the next 24-72 hours. - Vital Signs Vital signs: Temp Pulse Resp BP Pulse Ox 99.0 F 118 H 20 143/93 H 100 08/04/19 16:08 08/04/19 16:08 08/04/19 16:08 08/04/19 16:08 08/04/19 16:08 Discharge - Discharge Clinical Impression: Cough, Shortness of breath Condition: Stable Disposition: HOME, SELF-CARE Additional Instructions: You were seen for symptoms most consistent with bronchitis. This can take up to 12 weeks to fully resolve. This is generally due to a viral infection. Please follow-up with your primary doctor in the next 2-3 days. Start your steroids as prescribed. Take Tessalon Perles as needed for your cough. Return if you develop worsening cough, vomiting, fever >100.4, pass out, begin coughing blood, or have any other symptoms that are concerning to you. Please use the medications prescribed today as directed. Use the spacer with your inhaler. Prescriptions: Benzonatate [Tessalon Perles 100 mg Capsule] 100 mg PO Q8HP PRN #40 capsule PRN Reason: Cetirizine HCl [All Day Allergy] 10 mg PO DAILY #30 tablet Prednisone [Deltasone 20 mg Tablet] 3 tab PO DAILY 5 Days #15 tablet Fluticasone Propionate [Flonase Nasal [place] 50 Mcg/[place] 16 gm] 2 sprays NASL DAILY #1 inhaler Forms: Return to Work Referrals: PHONG LOVETT MD [Primary Care Provider] - Follow up tomorrow
== END 2019-08-04 18:47 | disposition home or self-care (01) ==
LOC: ER 16:07
DX: R05 Cough (principal); R06.02 Shortness of breath; R50.9 Fever, unspecified; R06.00 Dyspnea, unspecified; R00.0 Tachycardia, unspecified; F17.200 Nicotine dependence, unspecified, uncomplicated; Z90.710 Acquired absence of both cervix and uterus
CPT/HCPCS: 71045; 99283

== ENCOUNTER 2019-08-06 12:37 | Emergency (ER) | payer MEDICAID ==
[2019-08-06] MEDS ORDERED: KETOROLAC TROMETHAMINE INJ/PF 30 MG/1 ML SDV IV ONE (13:37)
[2019-08-06] MEDS ORDERED: IPRATROPIUM/ALBUTEROL 0.5-2.5 MG/3 ML AMPUL NEB ONE (13:37)
--- NOTE | 2019-08-06 13:39 | ER Document Report ---
ED Respiratory Problem - General Chief Complaint: Cough Stated Complaint: SHORTNESS OF BREATH Time Seen by Provider: 08/06/19 13:14 Notes: CHIEF COMPLAINT: Shortness of breath and pleuritic pain HPI: 39-year-old female presenting to the emergency department complaining of 10 days of shortness of breath and pleuritic discomfort. Patient had a telehealth meeting with her PCP 10 days ago for upper respiratory symptoms including shortness of breath and cough with body ache. Patient was diagnosed via telehealth with influenza was placed on Tamiflu, did feel better after several days but never completely improved. Patient states she feels like she is short of breath all the time even using an albuterol inhaler at home. Patient states she was seen here 2 days ago, had a chest x-ray that was negative and was placed on steroids and to continue her inhaler but she feels no better. She reports pain across the anterior chest with deep breathing. No fever. Spoke with her PCP by telehealth again and was referred back into the emergency department. 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 ALLERGIES: I agree with the allergies as charted by the RN. PAST MEDICAL HISTORY/PAST SURGICAL HISTORY: Reviewed and agree as charted by RN. SOCIAL HISTORY: Reviewed and agree as charted by RN. FAMILY HISTORY: No significant familial comorbid conditions directly related to patient complaint EXAM: Reviewed vital signs as charted by RN. CONSTITUTIONAL: Alert and oriented and responds appropriately to questions. Well-appearing; well-nourished HEAD: Normocephalic; atraumatic EYES: PERRL; Conjunctivae clear, sclerae non-icteric ENT: normal nose; no rhinorrhea; moist mucous membranes; pharynx without lesions noted, no uvula edema or deviation, no tonsillar hypertrophy, phonation normal NECK: Supple without meningismus; non-tender; no cervical lymphadenopathy, no masses CARD: RRR; no murmurs, no clicks, no rubs, no gallops; symmetric distal pulses RESP: Normal chest excursion without splinting or tachypnea; breath sounds clear and equal bilaterally; no wheezes, no rhonchi, no rales, pulse oximetry 98% on room air not hypoxic. Patient does not appear significantly dyspneic with speaking ABD/GI: Normal bowel sounds; non-distended; soft, non-tender, no rebound, no guarding; no palpable organomegaly or masses. BACK: The back appears normal and is non-tender to palpation, there is no CVA tenderness EXT: Normal ROM in all joints; non-tender to palpation; no cyanosis, no effusions, no edema SKIN: Normal color for age and race; warm; dry; good turgor; no acute lesions noted NEURO: Moves all extremities equally; Motor and sensory function intact PSYCH: The patient's mood and manner are appropriate. Grooming and personal hygiene are appropriate. MDM: 39-year-old female presenting with dyspnea and pleuritic discomfort as well as anterior chest wall pain over the last 2 weeks approximately. Had a negative chest x-ray 2 days ago. Perhaps had an exposure to someone who was ill up to 10 days ago, will obtain a COVID test today. Will obtain a flu test. She was presumptively treated for flu 10 days ago. Patient is not on oral control. Does not have significant risk factors for PE will obtain a d-dimer. TRAVEL OUTSIDE OF THE [place] IN LAST 30 DAYS: No - Related Data Allergies/Adverse Reactions: latex [Latex] Allergy (Severe, Verified 08/06/19 12:40) SWELLING,RASH meperidine HCl [From Demerol] Allergy (Severe, Verified 08/06/19 12:40) AMS, ABNORMAL EYE MOVEMENT morphine [Morphine] Allergy (Severe, Verified 08/06/19 12:40) SKIN TURNS DIFFERENT COLORS, SKIN CHAN AND SWELLS iodine [Iodine] Allergy (Unknown, Verified 08/06/19 12:40) lamotrigine [From Lamictal] Adverse Reaction (Intermediate, Verified 08/06/19 12:40) VOMITING levetiracetam [From Keppra] Adverse Reaction (Intermediate, Verified 08/06/19 12:40) Hallucinations Past Medical History - Social History Smoking Status: Current Some Day Smoker Chew tobacco use (# tins/day): No Frequency of alcohol use: Occasional Drug Abuse: None Family History: Reviewed & Not Pertinent, Arthritis, CVA, DM, Hyperlipidemia, Hypertension, Malignancy Patient has suicidal ideation: No Patient has homicidal ideation: No - Past Medical History Cardiac Medical History: Reports: Hx Hypertension - with Denies: Hx Coronary Artery Disease, Hx Heart Attack Pulmonary Medical History: Reports: Hx Asthma - exercise induced Denies: Hx Bronchitis, Hx COPD, Hx Pneumonia Neurological Medical History: Reports: Hx Migraine, Hx Seizures - epilepsy, right sided numbness with seizures, LAST SEIZURE LAST FRIDAY. Denies: Hx Cerebrovascular Accident Endocrine Medical History: Renal/ Medical History: Denies: Hx Peritoneal Dialysis GI Medical History: Reports: Hx Irritable Bowel Musculoskeletal Medical History: Denies Hx Arthritis, Reports Hx Musculoskeletal Deformity, Reports Hx Musculoskeletal Trauma Psychiatric Medical History: Reports: Hx Anxiety, Hx Attention Deficit Hyperactivity Disorder, Hx Depression - and anxiety, Hx Obsessive Compulsive Disorder Traumatic Medical History: Reports: Hx Fractures - left foot Past Surgical History: Reports: Hx Appendectomy, Hx Hysterectomy, Hx Tonsillectomy - Immunizations Immunizations up to date: Yes Hx Diphtheria, Pertussis, Tetanus Vaccination: Yes Hx Pneumococcal Vaccination: 01/12/13 Physical Exam - Vital signs Vitals: Temp Pulse Resp BP Pulse Ox 98.6 F 100 20 148/85 H 98 08/06/19 12:40 08/06/19 12:40 08/06/19 12:40 08/06/19 12:40 08/06/19 12:40 Course - Re-evaluation Re-evalutation: 08/06/19 16:11 Patient does not have significant dyspnea at this time. Her lung sounds remain clear to auscultation. Patient's work-up does not show acute actionable abnormalities at this time. Her d-dimer, cardiac screening labs are negative. Chest x-ray is negative for the second time inside of 3 days. She likely has mild bronchospastic cough continuing from a viral upper respiratory infection. Patient is aware that her COVID testing is pending she is considered a person under investigation at this time and will quarantine at home for 14 days or until she has a negative test result. She will continue on steroids and her albuterol inhaler - Vital Signs Vital signs: Temp Pulse Resp BP Pulse Ox 98.6 F 100 20 148/85 H 98 08/06/19 12:46 08/06/19 12:46 08/06/19 12:46 08/06/19 12:46 08/06/19 12:46 - Laboratory Result Diagrams: 08/06/19 14:43 08/06/19 14:43 Laboratory results interpreted by me: 08/06/19 14:43 Chloride 112 H Carbon Dioxide 20 L Discharge - Discharge Clinical Impression: Acute bronchospasm due to viral infection Condition: Stable Disposition: HOME, SELF-CARE Additional Instructions: Continue to use your albuterol inhaler 2 puffs every 4 hours as needed for short ness of breath. Continue the steroids as prescribed. Follow-up in 2 to 3 days with your PCP for reevaluation. Your screening lab work and imaging studies today did not show acute emergent abnormalities. You are considered a person under investigation at this time quarantine at home for the next 14 days or until you have a negative COVID test result Prescriptions: Prednisone [Deltasone 20 mg Tablet] 2 tab PO DAILY 5 Days #10 tablet Albuterol Sulfate [Proair HFA Inhalation Aerosol 8.5 gm MDI] 2 puff IH Q4H PRN #1 mdi PRN Reason:
--- NOTE | 2019-08-06 13:40 | RADIOLOGY REPORT (SQ) ---
EXAM DESCRIPTION: CHEST SINGLE VIEW IMAGES COMPLETED DATE/TIME: 08/06/2019 1:29 pm REASON FOR STUDY: cough COMPARISON: 08/04/2019 EXAM PARAMETERS: NUMBER OF VIEWS: One view. TECHNIQUE: Single frontal radiographic view of the chest acquired. RADIATION DOSE: NA LIMITATIONS: None. FINDINGS: LUNGS AND PLEURA: No opacities, masses or pneumothorax. No pleural effusion. MEDIASTINUM AND HILAR STRUCTURES: No masses. Contour normal. HEART AND VASCULAR STRUCTURES: Heart normal in size. Normal vasculature. BONES: No acute findings. HARDWARE: None in the chest. OTHER: No other significant finding. IMPRESSION: NO ACUTE RADIOGRAPHIC FINDING IN THE CHEST. TECHNICAL DOCUMENTATION: JOB ID: [id number] 2010 [employer]- All Rights Reserved Reading location - IP/workstation name: [email or web address]
[2019-08-06 13:50] LABS: A TYPE INFLUENZA AG NEGATIVE (NEGATIVE); B INFLUENZA AG NEGATIVE (NEGATIVE)
[2019-08-06 15:23] LABS: ABSOLUTE LYMPHOCYTES (AUTO) 1.7 10^3/uL (0.5-4.7); ABSOLUTE MONOCYTES (AUTO) 0.4 10^3/uL (0.1-1.4); ABSOLUTE NEUT (AUTO) 5.9 10^3/uL (1.7-8.2); BASOPHILS % (AUTO) 0.2 % (0-2); EOSINOPHILS % (AUTO) 0.1 % (0-6); HEMATOCRIT 38.6 % (36.0-47.0); HEMOGLOBIN 13.3 g/dL (12.0-15.5); MEAN CORPUSCULAR HEMOGLOBIN 32.4 pg (27.0-33.4); MEAN CORPUSCULAR HGB CONC 34.3 g/dL (32.0-36.0); MEAN CORPUSCULAR VOLUME 95 fl (80-97); PLATELET COUNT 180 10^3/uL (150-450); RED BLOOD COUNT 4.09 10^6/uL (3.72-5.28); RED CELL DISTRIBUTION WIDTH 13.1 % (11.5-14.0); SEGMENTED NEUTROPHILS % (AUTO) 73.7 % (42-78); TOTAL CELLS COUNTED % (AUTO) 100 %
[2019-08-06 15:40] LABS: ALKALINE PHOSPHATASE 63 U/L (38-126); ANION GAP 8 (5-19); ASPARTATE AMINO TRANSFERASE 15 U/L (14-36); BILIRUBIN,TOTAL 0.3 mg/dL (0.2-1.3); BLOOD UREA NITROGEN 10 mg/dL (7-20); CALCIUM 8.5 mg/dL (8.4-10.2); CARBON DIOXIDE 20 mmol/L (22-30); CHLORIDE 112 mmol/L (98-107); GLUCOSE 92 mg/dL (75-110); POTASSIUM 3.7 mmol/L (3.6-5.0)
[2019-08-06 15:52] LABS: NT PRO BNP 102 pg/mL (<125)
[2019-08-06 15:54] LABS: TROPONIN I < 0.012 ng/mL
[2019-08-06 16:33] VITALS: BP 130/83
== END 2019-08-06 16:35 | disposition home or self-care (01) ==
LOC: ER 12:37
DX: J20.8 Acute bronchitis due to other specified organisms (principal); B97.89 Other viral agents as the cause of diseases classified elsewhere; R05 Cough; R06.02 Shortness of breath; R07.81 Pleurodynia; M79.10 Myalgia, unspecified site; R06.00 Dyspnea, unspecified; R07.89 Other chest pain; Z88.8 Allergy status to other drugs, medicaments and biological substances; F17.200 Nicotine dependence, unspecified, uncomplicated; J45.909 Unspecified asthma, uncomplicated; Z20.828 Contact with and (suspected) exposure to other viral communicable diseases
CPT/HCPCS: 94640; 99283; 96374; 36415; 87070; 87880; 85025; 87635; 80053; 84484; 85379; 87804; 83880; 71045; J1885; J7620

== ENCOUNTER 2019-08-09 11:44 | Emergency (ER) | payer MEDICAID ==
[2019-08-09 12:04] VITALS: BP 129/74
--- NOTE | 2019-08-09 12:25 | ER Document Report ---
ED Respiratory Problem - General Chief Complaint: Cough Stated Complaint: COUGH Time Seen by Provider: 08/09/19 11:49 Notes: CHIEF COMPLAINT: Continued subjective shortness of breath HPI: 39-year-old female presenting to the emergency department complaining of continued subjective coughing. Patient has had cough for 2 weeks. Patient does smoke daily and states she has continued to smoke throughout her illness. Patient states she is continuing the steroids and the inhalers at home, feels like she begins to cough when speaking for long periods or crossing her room. Called the PCP today and was again referred back into the emergency department ROS: See HPI - all other systems were reviewed and are otherwise negative Constitutional: no fever Eyes: no drainage, no blurred vision ENT: no runny nose, no sore throat Cardiovascular: no chest pain Resp: + SOB, + cough GI: no vomiting, no diarrhea, no abdominal pain : no dysuria Integumentary: no rash Allergy: no hives Musculoskeletal: no extremity pain or swelling Neurological: no numbness/tingling, no weakness MEDICATIONS: I agree with the patient medications as charted by the RN. ALLERGIES: I agree with the allergies as charted by the RN. PAST MEDICAL HISTORY/PAST SURGICAL HISTORY: Reviewed and agree as charted by RN. SOCIAL HISTORY: Reviewed and agree as charted by RN. FAMILY HISTORY: No significant familial comorbid conditions directly related to patient complaint EXAM: Reviewed vital signs as charted by RN. CONSTITUTIONAL: Alert and oriented and responds appropriately to questions. Well-appearing; well-nourished, no acute distress HEAD: Normocephalic; atraumatic EYES: PERRL; Conjunctivae clear, sclerae non-icteric ENT: normal nose; no rhinorrhea; moist mucous membranes; pharynx without lesions noted, no uvula edema or deviation, no tonsillar hypertrophy, phonation normal NECK: Supple without meningismus; non-tender; no cervical lymphadenopathy, no masses CARD: RRR; no murmurs, no clicks, no rubs, no gallops; symmetric distal pulses RESP: Normal chest excursion without splinting or tachypnea; breath sounds clear and equal bilaterally; no wheezes, no rhonchi, no rales, pulse oximetry 98% on room air not hypoxic. Does not become dyspneic with speaking ABD/GI: Normal bowel sounds; non-distended; soft, non-tender, no rebound, no guarding; no palpable organomegaly or masses. BACK: The back appears normal and is non-tender to palpation, there is no CVA tenderness EXT: Normal ROM in all joints; non-tender to palpation; no cyanosis, no effusions, no edema SKIN: Normal color for age and race; warm; dry; good turgor; no acute lesions noted NEURO: Moves all extremities equally; Motor and sensory function intact PSYCH: The patient's mood and manner are appropriate. Grooming and personal hygiene are appropriate. MDM: 39-year-old female with subjective shortness of breath and cough. Likely has bronchospasm. Is on steroids and albuterol inhaler. Has continued to smoke throughout her illness we spoke about tobacco cessation. She will not get better if she continues to smoke. I saw the patient on her visit 3 days ago, I did COVID testing which resulted today and was negative. Her chest x-ray was negative her d-dimer was negative she is low risk for pulmonary embolus but given her continued recurrent visits I did offer CT imaging today to evaluate for PE which patient declines. She indicates she will stop smoking, continue steroids and albuterol. I will place the patient on doxycycline at this point per her request for treatment for bronchitis given her smoking history and continued repeated symptoms and visits to the emergency department. Patient indicates it is difficult to follow-up in the office because of the COVID pandemic TRAVEL OUTSIDE OF THE [place] IN LAST 30 DAYS: No - Related Data Allergies/Adverse Reactions: latex [Latex] Allergy (Severe, Verified 08/06/19 12:40) SWELLING,RASH meperidine HCl [From Demerol] Allergy (Severe, Verified 08/06/19 12:40) AMS, ABNORMAL EYE MOVEMENT morphine [Morphine] Allergy (Severe, Verified 08/06/19 12:40) SKIN TURNS DIFFERENT COLORS, SKIN CHAN AND SWELLS iodine [Iodine] Allergy (Unknown, Verified 08/06/19 12:40) lamotrigine [From Lamictal] Adverse Reaction (Intermediate, Verified 08/06/19 12:40) VOMITING levetiracetam [From Keppra] Adverse Reaction (Intermediate, Verified 08/06/19 12:40) Hallucinations Home Medications: oxtellar, trokendi Past Medical History - Social History Smoking Status: Current Some Day Smoker Chew tobacco use (# tins/day): No Frequency of alcohol use: Occasional Family History: Reviewed & Not Pertinent, Arthritis, CVA, DM, Hyperlipidemia, Hypertension, Malignancy Patient has suicidal ideation: No Patient has homicidal ideation: No - Past Medical History Cardiac Medical History: Reports: Hx Hypertension - with Denies: Hx Coronary Artery Disease, Hx Heart Attack Pulmonary Medical History: Reports: Hx Asthma - exercise induced Denies: Hx Bronchitis, Hx COPD, Hx Pneumonia Neurological Medical History: Reports: Hx Migraine, Hx Seizures - epilepsy, right sided numbness with seizures, LAST SEIZURE LAST FRIDAY. Denies: Hx Cerebrovascular Accident Endocrine Medical History: Renal/ Medical History: Denies: Hx Peritoneal Dialysis GI Medical History: Reports: Hx Irritable Bowel Musculoskeletal Medical History: Denies Hx Arthritis, Reports Hx Musculoskeletal Deformity, Reports Hx Musculoskeletal Trauma Psychiatric Medical History: Reports: Hx Anxiety, Hx Attention Deficit Hyperactivity Disorder, Hx Depression - and anxiety, Hx Obsessive Compulsive Disorder Traumatic Medical History: Reports: Hx Fractures - left foot Past Surgical History: Reports: Hx Appendectomy, Hx Hysterectomy, Hx Tonsillectomy - Immunizations Immunizations up to date: Yes Hx Diphtheria, Pertussis, Tetanus Vaccination: Yes Hx Pneumococcal Vaccination: 01/12/13 Physical Exam - Vital signs Vitals: Temp Pulse Resp BP Pulse Ox 98.7 F 84 16 129/74 H 98 08/09/19 11:58 08/09/19 11:58 08/09/19 11:58 08/09/19 11:58 08/09/19 11:58 Course - Vital Signs Vital signs: Temp Pulse Resp BP Pulse Ox 98.7 F 84 16 129/74 H 98 08/09/19 11:58 08/09/19 11:58 08/09/19 11:58 08/09/19 11:58 08/09/19 11:58 Discharge - Discharge Clinical Impression: Lower resp. tract infection Condition: Stable Disposition: HOME, SELF-CARE Additional Instructions: Stop smoking. You will not get better if you do not stop smoking. Continues steroids and albuterol inhaler. Take the doxycycline as prescribed. Follow-up in office with your primary care provider for reevaluation of symptoms if they persist. Prescriptions: Doxycycline Monohydrate 100 mg PO BID #28 capsule
== END 2019-08-09 12:30 | disposition home or self-care (01) ==
LOC: ER 11:44
DX: J22 Unspecified acute lower respiratory infection (principal); R05 Cough; R06.02 Shortness of breath; Z88.8 Allergy status to other drugs, medicaments and biological substances; F17.200 Nicotine dependence, unspecified, uncomplicated; I10 Essential (primary) hypertension; J45.909 Unspecified asthma, uncomplicated
CPT/HCPCS: 99283

== ENCOUNTER 2020-01-05 10:45 | Emergency (ER) | payer MEDICAID ==
[2020-01-05] MEDS ORDERED: KETOROLAC TROMETHAMINE INJ/PF 30 MG/1 ML SDV IV ONE (11:57)
[2020-01-05] MEDS ORDERED: DIAZEPAM INJ 10 MG/2 ML DISP.SYRIN IV ONE (11:57)
--- NOTE | 2020-01-05 12:30 | ER Document Report ---
ED Respiratory Problem - General Chief Complaint: Chest Congestion Stated Complaint: COUGH,NO SMELL,CHEST PAIN Time Seen by Provider: 01/05/20 11:32 Primary Care Provider: BEAU WINTER DO [Primary Care Provider] - Follow up as needed Notes: CHIEF COMPLAINT: Right chest pain, diarrhea, loss of smell HPI: 39-year-old female presenting with 1 day of a persistent right chest pain that is reproducible with palpation movement and touch. States it feels like [id number]. No shortness of breath. Has taken no medications for same. States that she lost her sense of smell yesterday. Also with 3-4 episodes of diarrhea or loose bowels. Denies abdominal pain. Denies fever. ROS: See HPI - all other systems were reviewed and are otherwise negative Constitutional: no fever Eyes: no drainage, no blurred vision ENT: no runny nose, no sore throat Cardiovascular: + chest pain Resp: no SOB, no cough GI: no vomiting, + diarrhea, no abdominal pain : no dysuria Integumentary: no rash Allergy: no hives Musculoskeletal: no extremity pain or swelling Neurological: no numbness/tingling, no weakness MEDICATIONS: I agree with the patient medications as charted by the RN. ALLERGIES: I agree with the allergies as charted by the RN. PAST MEDICAL HISTORY/PAST SURGICAL HISTORY: Reviewed and agree as charted by RN. SOCIAL HISTORY: Reviewed and agree as charted by RN. FAMILY HISTORY: No significant familial comorbid conditions directly related to patient complaint EXAM: Reviewed vital signs as charted by RN. CONSTITUTIONAL: Alert and oriented and responds appropriately to questions. Well-appearing; well-nourished HEAD: Normocephalic; atraumatic EYES: PERRL; Conjunctivae clear, sclerae non-icteric ENT: normal nose; no rhinorrhea; moist mucous membranes; pharynx without lesions noted, no uvula edema or deviation, no tonsillar hypertrophy, phonation normal NECK: Supple without meningismus; non-tender; no cervical lymphadenopathy, no masses CARD: RRR; no murmurs, no clicks, no rubs, no gallops; symmetric distal pulses RESP: Normal chest excursion without splinting or tachypnea; breath sounds clear and equal bilaterally; no wheezes, no rhonchi, no rales, pulse oximetry 98% on room air not hypoxic. Patient with tenderness across the anterior lateral right upper chest wall with palpation ABD/GI: Normal bowel sounds; non-distended; soft, non-tender, no rebound, no guarding; no palpable organomegaly or masses. BACK: The back appears normal and is non-tender to palpation, there is no CVA t enderness EXT: Normal ROM in all joints; non-tender to palpation; no cyanosis, no effusions, no edema SKIN: Normal color for age and race; warm; dry; good turgor; no acute lesions noted NEURO: Moves all extremities equally; Motor and sensory function intact PSYCH: The patient's mood and manner are dramatic and tearful. Grooming and personal hygiene are appropriate. MDM: 39-year-old female reporting loss of smell, right chest pain that is completely reproducible in nature as well as some diarrhea over the last 24 hours. Symptoms suggest COVID. Given the reproducibility of her chest disco mfort less likely this is ACS. EKG sinus rhythm with a ventricular rate of 90 with borderline flattening of the T waves in the anterior lateral leads but this is unchanged from prior EKG of July 03, 2016. No other visible ectopy. Interpreted by emergency department physicians. NE 124 QT 368 QTC 451. Will obtain chest x-ray, 1 set of screening cardiac labs as her pain has been constant since yesterday evening. PERC negative. TRAVEL OUTSIDE OF THE [place] IN LAST 30 DAYS: No - Related Data Allergies/Adverse Reactions: latex [Latex] Allergy (Severe, Verified 08/06/19 12:40) SWELLING,RASH meperidine HCl [From Demerol] Allergy (Severe, Verified 08/06/19 12:40) AMS, ABNORMAL EYE MOVEMENT morphine [Morphine] Allergy (Severe, Verified 08/06/19 12:40) SKIN TURNS DIFFERENT COLORS, SKIN CHAN AND SWELLS iodine [Iodine] Allergy (Unknown, Verified 08/06/19 12:40) lamotrigine [From Lamictal] Adverse Reaction (Intermediate, Verified 08/06/19 12:40) VOMITING levetiracetam [From Keppra] Adverse Reaction (Intermediate, Verified 08/06/19 12:40) Hallucinations Home Medications: medication for Epilepsy Past Medical History - Social History Smoking Status: Current Some Day Smoker Family History: Reviewed & Not Pertinent, Arthritis, CVA, DM, Hyperlipidemia, Hypertension, Malignancy Patient has homicidal ideation: No - Past Medical History Cardiac Medical History: Reports: Hx Hypertension - with Denies: Hx Coronary Artery Disease, Hx Heart Attack Pulmonary Medical History: Reports: Hx Asthma - exercise induced Denies: Hx Bronchitis, Hx COPD, Hx Pneumonia Neurological Medical History: Reports: Hx Migraine, Hx Seizures - epilepsy, right sided numbness with seizures, LAST SEIZURE LAST FRIDAY. Denies: Hx Cerebrovascular Accident Endocrine Medical History: Renal/ Medical History: Denies: Hx Peritoneal Dialysis GI Medical History: Reports: Hx Irritable Bowel Musculoskeletal Medical History: Denies Hx Arthritis, Reports Hx Musculoskeletal Deformity, Reports Hx Musculoskeletal Trauma Psychiatric Medical History: Reports: Hx Anxiety, Hx Attention Deficit Hyperactivity Disorder, Hx Depression - and anxiety, Hx Obsessive Compulsive Disorder Traumatic Medical History: Reports: Hx Fractures - left foot Past Surgical History: Reports: Hx Appendectomy, Hx Hysterectomy, Hx Tonsillectomy - Immunizations Immunizations up to date: Yes Hx Diphtheria, Pertussis, Tetanus Vaccination: Yes Hx Pneumococcal Vaccination: 01/12/13 Physical Exam - Vital signs Vitals: Temp Pulse Resp BP Pulse Ox 98.6 F 103 H 19 131/73 H 100 01/05/20 11:01 01/05/20 11:01 01/05/20 11:01 01/05/20 11:01 01/05/20 11:01 Course - Re-evaluation Re-evalutation: 01/05/20 14:33 Patient's lab work and chest x-ray did not show acute emergent abnormalities. Patient will be considered a person under investigation for COVID-19 at this time self quarantine at home pending results. Will place patient on Voltaren for her chest wall pain. Follow-up PCP return if condition worsens - Vital Signs Vital signs: Temp Pulse Resp BP Pulse Ox 98.6 F 103 H 19 131/73 H 100 01/05/20 11:01 01/05/20 11:01 01/05/20 11:01 01/05/20 11:01 01/05/20 11:01 - Laboratory Result Diagrams: 01/05/20 12:35 01/05/20 12:35 Laboratory results interpreted by me: 01/05/20 01/05/20 12:35 12:35 Plt Count 142 L Chloride 113 H Discharge - Discharge Clinical Impression: Chest wall pain, Person under investigation for COVID-19 Diarrhea Qualifiers: Diarrhea type: unspecified type Qualified Code(s): R19.7 - Diarrhea, unspecified Condition: Stable Disposition: HOME, SELF-CARE Instructions: COVID-19 Guidance for Persons Under Investigation Additional Instructions: You are considered a person under investigation for COVID-19 at this time self quarantine at home pending your results which may take 2 to 5 days. You should hear from someone at the hospital about your results. Take Voltaren to help with the chest wall pain. Your screening lab work today, chest x-ray did not show acute emergent findings. Follow-up with your primary care provider for reevaluation of symptoms call for appointment. Return to the emergency depar tment for worsening condition fever shortness of breath Prescriptions: Diclofenac Sodium [Voltaren 50 Mg Tablet.] 50 mg PO BID #20 tablet. Referrals: BEAU WINTER DO [Primary Care Provider] - Follow up as needed
--- NOTE | 2020-01-05 12:49 | RADIOLOGY REPORT (SQ) ---
EXAM DESCRIPTION: CHEST SINGLE VIEW IMAGES COMPLETED DATE/TIME: 01/05/2020 12:36 pm REASON FOR STUDY: right chest pain COMPARISON: 08/06/2019 EXAM PARAMETERS: NUMBER OF VIEWS: One view. TECHNIQUE: Single frontal radiographic view of the chest acquired. RADIATION DOSE: NA LIMITATIONS: None. FINDINGS: LUNGS AND PLEURA: No opacities, masses or pneumothorax. No pleural effusion. MEDIASTINUM AND HILAR STRUCTURES: No masses. Contour normal. HEART AND VASCULAR STRUCTURES: Heart normal in size. Normal vasculature. BONES: No acute findings. HARDWARE: None in the chest. OTHER: No other significant finding. IMPRESSION: NO ACUTE RADIOGRAPHIC FINDING IN THE CHEST. TECHNICAL DOCUMENTATION: JOB ID: [id number] 2010 [employer]- All Rights Reserved Reading location - IP/workstation name: [email or web address]
[2020-01-05 12:55] LABS: ABSOLUTE EOSINOPHILS # (AUTO) 0.1 10^3/uL (0.0-0.6); ABSOLUTE LYMPHOCYTES (AUTO) 0.9 10^3/uL (0.5-4.7); ABSOLUTE MONOCYTES (AUTO) 0.2 10^3/uL (0.1-1.4); ABSOLUTE NEUT (AUTO) 3.7 10^3/uL (1.7-8.2); BASOPHILS % (AUTO) 0.2 % (0-2); EOSINOPHILS % (AUTO) 1.7 % (0-6); HEMATOCRIT 36.2 % (36.0-47.0); HEMOGLOBIN 12.8 g/dL (12.0-15.5); LYMPHOCYTES % (AUTO) 18.9 % (13-45); MEAN CORPUSCULAR HEMOGLOBIN 32.7 pg (27.0-33.4); MEAN CORPUSCULAR HGB CONC 35.2 g/dL (32.0-36.0); MEAN CORPUSCULAR VOLUME 93 fl (80-97); MONOCYTES % (AUTO) 4.4 % (3-13); PLATELET COUNT 142 10^3/uL (150-450); RED BLOOD COUNT 3.91 10^6/uL (3.72-5.28); SEGMENTED NEUTROPHILS % (AUTO) 74.8 % (42-78); TOTAL CELLS COUNTED % (AUTO) 100 %; WHITE BLOOD COUNT 4.9 10^3/uL (4.0-10.5)
[2020-01-05 13:17] LABS: ALBUMIN 3.9 g/dL (3.5-5.0); ALKALINE PHOSPHATASE 63 U/L (38-126); ANION GAP 6 (5-19); ASPARTATE AMINO TRANSFERASE 15 U/L (14-36); BILIRUBIN,DIRECT 0.2 mg/dL (0.0-0.4); BILIRUBIN,TOTAL 0.3 mg/dL (0.2-1.3); BLOOD UREA NITROGEN 11 mg/dL (7-20); CALCIUM 8.4 mg/dL (8.4-10.2); CARBON DIOXIDE 22 mmol/L (22-30); CHLORIDE 113 mmol/L (98-107); GLUCOSE 99 mg/dL (75-110); POTASSIUM 4.5 mmol/L (3.6-5.0); TOTAL PROTEIN 6.7 g/dL (6.3-8.2)
--- NOTE | 2020-01-05 14:45 | EKG REPORT ---
SEVERITY:- BORDERLINE ECG - SINUS RHYTHM BORDERLINE T ABNORMALITIES, ANT-LAT LEADS : Confirmed by: Lillian Bradley MD 05-Jan-2020 14:44:56
[2020-01-05 14:47] VITALS: BP 128/70
== END 2020-01-05 14:40 | disposition home or self-care (01) ==
LOC: ER 10:45
DX: R07.89 Other chest pain (principal); R19.7 Diarrhea, unspecified; R05 Cough; R43.9 Unspecified disturbances of smell and taste; Z20.828 Contact with and (suspected) exposure to other viral communicable diseases; F17.200 Nicotine dependence, unspecified, uncomplicated; Z90.710 Acquired absence of both cervix and uterus
CPT/HCPCS: 93005; 99285; 96374; 36415; 83690; 85025; 87635; 80053; 84484; 71045; 93010; J1885; C9803